=== PATIENT | male | born 1955 | race Caucasian/White ===

== ENCOUNTER 2020-12-11 12:53 | Outpatient (REF) | payer MEDICARE, MEDICAID, SELFPAY ==
--- NOTE | ~2020-12-11 | US_ITS ---
EXAMINATION: US RETROPERITONEAL LIMITED (AORTA) CLINICAL INFORMATION: AAA. COMPARISON: None TECHNIQUE: [place]-scale, color Doppler and spectral Doppler evaluation of the abdominal aorta. FINDINGS: The aorta is normal. The measurements of the aorta in maximum AP and transverse dimensions respectively are as follows: Proximal: 2.8 x 2.9 cm. Mid: 2.2 x 2.0 cm. Distal: 2.0 x 2.3 cm. PSV: 114 cm/s. The visualized common iliac arteries are slightly dilated. The measurements of the common iliac arteries in maximum AP and TRV dimensions are as follows: Right Common Iliac Artery: 1.7 x 1.6 cm. Left Common Iliac Artery: 1.7 x 1.8 cm. US/US aorta IMPRESSION: No aneurysm is seen.
== END 2020-12-11 12:54 | disposition home or self-care (01) ==
LOC: HO.HMGCX 12:53
PROVIDERS: PCP Internal Medicine; Visit Provider Internal Medicine
DX: Z13.6 Encounter for screening for cardiovascular disorders (principal); Z87.891 Personal history of nicotine dependence
CPT/HCPCS: 76775

== ENCOUNTER 2020-12-16 12:08 | Outpatient (REF) | payer MEDICARE, MEDICAID, SELFPAY ==
--- NOTE | ~2020-12-16 | XR_ITS ---
EXAMINATION: RADIOGRAPHS BILATERAL KNEES CLINICAL INFORMATION: Bilateral knee pain COMPARISON: None TECHNIQUE: 4 views of each knee were obtained. FINDINGS: Right knee: No fracture or dislocation. Small suprapatellar joint effusion. Medial and lateral joint spaces are maintained. Tiny tricompartmental marginal osteophyte. Left knee: Patient is status post knee replacement. Components are in expected orientation. No periprosthetic fracture identified. Tiny suprapatellar joint effusion. XR/XR knee RT 2V IMPRESSION: -Mild degenerative changes of the right knee with a small joint effusion. -Unremarkable radiographs of the left knee status post replacement.
--- NOTE | ~2020-12-16 | XR_ITS ---
EXAMINATION: RADIOGRAPHS BILATERAL KNEES CLINICAL INFORMATION: Bilateral knee pain COMPARISON: None TECHNIQUE: 4 views of each knee were obtained. FINDINGS: Right knee: No fracture or dislocation. Small suprapatellar joint effusion. Medial and lateral joint spaces are maintained. Tiny tricompartmental marginal osteophyte. Left knee: Patient is status post knee replacement. Components are in expected orientation. No periprosthetic fracture identified. Tiny suprapatellar joint effusion. XR/XR knee standing BI IMPRESSION: -Mild degenerative changes of the right knee with a small joint effusion. -Unremarkable radiographs of the left knee status post replacement.
--- NOTE | ~2020-12-16 | XR_ITS ---
EXAMINATION: RADIOGRAPHS BILATERAL KNEES CLINICAL INFORMATION: Bilateral knee pain COMPARISON: None TECHNIQUE: 4 views of each knee were obtained. FINDINGS: Right knee: No fracture or dislocation. Small suprapatellar joint effusion. Medial and lateral joint spaces are maintained. Tiny tricompartmental marginal osteophyte. Left knee: Patient is status post knee replacement. Components are in expected orientation. No periprosthetic fracture identified. Tiny suprapatellar joint effusion. XR/XR knee LT 2V IMPRESSION: -Mild degenerative changes of the right knee with a small joint effusion. -Unremarkable radiographs of the left knee status post replacement.
== END 2020-12-16 12:09 | disposition home or self-care (01) ==
LOC: HO.HOSX 12:08
PROVIDERS: Visit Provider Orthopaedic Surgery
DX: M17.11 Unilateral primary osteoarthritis, right knee (principal); Z96.652 Presence of left artificial knee joint
CPT/HCPCS: 20610; 73560; 73565; 99202; J1100

== ENCOUNTER → 2021-03-17 13:14 | Outpatient (BNVA) | payer MEDICARE, MEDICAID, SELFPAY | PROVIDERS: PCP Internal Medicine; Visit Provider Orthopaedic Surgery | DX: M17.11 Unilateral primary osteoarthritis, right knee (principal); Z96.652 Presence of left artificial knee joint | CPT/HCPCS: 99212; J1100 ==

== ENCOUNTER → 2021-06-16 12:15 | Outpatient (BNVA) | payer MEDICARE, MEDICAID, SELFPAY | PROVIDERS: PCP Internal Medicine; Visit Provider Orthopaedic Surgery | DX: M17.11 Unilateral primary osteoarthritis, right knee (principal) | CPT/HCPCS: 99212; J1100 ==

== ENCOUNTER 2023-03-26 14:32 | Outpatient (REF) | payer MEDICARE, MEDICAID, SELFPAY | END 2023-03-26 14:33 | disposition home or self-care (01) | LOC: HO.HHCL 14:32 | PROVIDERS: Visit Provider Nurse Practitioner Family | DX: E78.2 Mixed hyperlipidemia (principal) | CPT/HCPCS: 36415; 82552 ==

== ENCOUNTER 2023-06-04 15:09 | Outpatient (REF) | payer MEDICARE, MEDICAID, SELFPAY ==
[2023-06-10 21:28] LABS: CK-BB None Detected (None Detected); CK-MB 0 % (<5); CK-MM 100 % (95-100); Creatine Kinase,Total,Serum 64 U/L (44-196)
== END 2023-06-04 15:10 | disposition home or self-care (01) ==
LOC: HO.HHCL 15:09
PROVIDERS: Visit Provider Nurse Practitioner Family
DX: I10 Essential (primary) hypertension (principal)
CPT/HCPCS: 36415; 82552

== ENCOUNTER 2024-02-04 14:41 | Outpatient (REF) | payer MEDICARE, MEDICAID, SELFPAY ==
[2024-02-04 17:55] LABS: MANUAL DIFF FLAG NO
[2024-02-04 18:00] LABS: Basophils Percent Auto 0.7 % (0-2); Eosinophils Absolute Auto 0.2 X10*3/uL (0.0-0.4); Eosinophils Percent Auto 3.3 % (0-4); Hematocrit 41.7 % (42.0-52.0); Hemoglobin 14.2 g/dl (14.0-18.0); Imm Gran Abs Auto 0.02 X10*3/uL (0.00-0.03); Imm Gran Pct Auto 0.3 % (0.0-0.4); Lymphocytes Absolute Auto 1.8 X10*3/uL (1.2-4.9); Lymphocytes Percent Auto 29.1 % (20-40); Mean Corpuscular HGB Conc 34.1 g/dl (31.0-36.0); Mean Corpuscular Hemoglobin 31.3 pg (27.0-33.0); Mean Corpuscular Volume 91.9 fL (80.0-98.0); Mean Platelet Volume 9.9 fL (9.4-12.4); Monocytes Absolute Auto 0.9 X10*3/uL (0.1-1.2); Monocytes Percent Auto 14.8 % (2-11); Neutrophils Absolute Auto 3.1 x10*3/uL (2.0-8.3); Neutrophils Percent Auto 51.8 % (45-73); Platelet Count 297 X10*3/uL (160-400); Red Blood Count 4.54 X10*6/uL (4.60-5.80); Red Cell Distribution Width 12.1 % (11.0-16.0)
[2024-02-04 18:35] LABS: Alanine Aminotransferase 30 U/L (0-40); Albumin Level 4.6 g/dL (3.5-5.0); Alkaline Phosphatase 63 U/L (39-117); Anion Gap 16 (12-20); Aspartate Amino Transferase 38 U/L (5-37); Bilirubin Total 0.6 mg/dL (0.0-1.0); Blood Urea Nitrogen 14 mg/dL (9-16); Calcium 9.6 mg/dL (8.4-10.2); Carbon Dioxide 25 mmol/L (22-29); Chloride 102 mmol/L (96-108); Cholesterol 130 mg/dL (<200); Estimated Glomerular Filt Rate > 60; Glucose Random 78 mg/dL (60-115); HDL Cholesterol 47 mg/dL (>40); LDL Cholesterol Calculated 62 mg/dL (<100); Sodium 140 mmol/L (135-145); Total Protein 7.4 g/dL (6.5-8.0); Triglycerides 107 mg/dL (<150)
== END 2024-02-04 14:42 | disposition home or self-care (01) ==
LOC: HO.CHCLDS 14:41
PROVIDERS: Visit Provider Family Medicine
DX: E66.01 Morbid (severe) obesity due to excess calories (principal); G93.32 Myalgic encephalomyelitis/chronic fatigue syndrome; M79.7 Fibromyalgia
CPT/HCPCS: 36415; 80053; 80061; 82306; 84443; 85025

== ENCOUNTER 2024-03-17 14:14 | Outpatient (REF) | payer MEDICARE, MEDICAID, SELFPAY ==
[2024-03-17 17:55] LABS: Anion Gap 13 (12-20); Blood Urea Nitrogen 13 mg/dL (9-16); Calcium 9.7 mg/dL (8.4-10.2); Carbon Dioxide 27 mmol/L (22-29); Chloride 104 mmol/L (96-108); Estimated Glomerular Filt Rate > 60; Glucose Random 95 mg/dL (60-115); Potassium 3.4 mmol/L (3.3-5.1); Sodium 141 mmol/L (135-145)
== END 2024-03-17 14:15 | disposition home or self-care (01) ==
LOC: HO.CHCLDS 14:14
PROVIDERS: Visit Provider Family Medicine
DX: E87.6 Hypokalemia (principal)
CPT/HCPCS: 36415; 80048; 83735

== ENCOUNTER 2024-03-30 14:20 | Outpatient (REF) | payer MEDICARE, MEDICAID, SELFPAY ==
[2024-03-30 21:48] LABS: Anion Gap 12 (12-20); Blood Urea Nitrogen 9 mg/dL (9-16); Calcium 9.4 mg/dL (8.4-10.2); Carbon Dioxide 29 mmol/L (22-29); Chloride 101 mmol/L (96-108); Estimated Glomerular Filt Rate > 60; Glucose Random 133 mg/dL (60-115); Potassium 3.3 mmol/L (3.3-5.1); Sodium 139 mmol/L (135-145)
== END 2024-03-30 14:21 | disposition home or self-care (01) ==
LOC: HO.CHCLDS 14:20
PROVIDERS: Visit Provider Family Medicine
DX: E87.6 Hypokalemia (principal)
CPT/HCPCS: 36415; 80048

== ENCOUNTER 2024-05-03 15:28 | Outpatient (REF) | payer MEDICARE, MEDICAID, SELFPAY ==
--- OUTSIDE RECORDS SUMMARY | 2024-05-03 17:26 | XMS_ITS | Clinical Summary ---
Author Organization [facility] ity Address [address] [place] [address] Care Team Providers Care Hammer Operator Name Role Phone Unavailable Primary Care Provider Unavailabl e Social History Tobacco Use Types Packs/Day Years Used Date Smoking Tobacco: Never Assessed Sex and Gender Information Value Date Recorded Sex Assigned at Not on file Gender Identity Not on file Sexual Orientation Not on file Plan of Treatment Health Maintenance Due Date Last Done Comments DTaP,Tdap,and Td Vaccines (1 - Tdap) 1974 Zoster Vaccines (1 of 2) 2005 Pneumococcal Vaccine: 65+ Ye ars (1 of 1 - PCV) 02/15/2020 Abdominal Aortic Aneurysm (A AA) Screen 03/07/2022 Cholesterol Screening (Lipid Panel) 03/07/2022 Colorectal Cancer Screening: Colonoscopy 03/07/2022 Depression Screening 03/07/2022 Falls Risk Assessment 03/07/2022 Hepatitis C Screening 03/07/2022 Social Influencers of Health Screening 03/07/2022 COVID-19 Vaccine (1 - 2023-2 5 season) 2023 Influenza Vaccine (#1) 2023 RSV Immunization Patients 60 + Years Old (1 - 1-dose 75+ series) 2030 HIB Vaccines Aged Out No longer eligi ble based on patient's age to complete this topic HPV Vaccines Aged Out No longer eligi ble based on patient's age to complete this topic Hepatitis A Vaccines Aged Out No long er eligible based on patient's age to complete this topic Hepatitis B Vaccines Aged Out No long er eligible based on patient's age to complete this topic IPV Vaccines Aged Out No longer eligi ble based on patient's age to complete this topic MMR Vaccines Aged Out No longer eligi ble based on patient's age to complete this topic Meningococcal ACWY Vaccine Aged Out N o longer eligible based on patient's age to complete this topic RSV Immunization Patients Un brianna 20 months Aged Out No longer eligible b ased on patient's age to complete this topic Varicella Vaccines Aged Out No longer eligible based on patient's age to complete this topic
[2024-05-03 18:14] LABS: Anion Gap 12 (12-20); Blood Urea Nitrogen 10 mg/dL (9-16); Calcium 9.4 mg/dL (8.4-10.2); Carbon Dioxide 29 mmol/L (22-29); Chloride 101 mmol/L (96-108); Estimated Glomerular Filt Rate > 60; Glucose Random 101 mg/dL (60-115); Potassium 3.1 mmol/L (3.3-5.1); Sodium 139 mmol/L (135-145)
== END 2024-05-03 15:29 | disposition home or self-care (01) ==
LOC: HO.CHCLDS 15:28
PROVIDERS: Visit Provider Family Medicine
DX: I10 Essential (primary) hypertension (principal)
CPT/HCPCS: 36415; 80048

== ENCOUNTER 2024-09-12 13:08 | Outpatient (REF) | payer MEDICARE, MEDICAID, SELFPAY ==
[2024-09-12 14:23] LABS: MANUAL DIFF FLAG NO
[2024-09-12 14:25] LABS: Basophils Percent Auto 0.4 % (0-2); Eosinophils Absolute Auto 0.2 X10*3/uL (0.0-0.4); Eosinophils Percent Auto 3.9 % (0-4); Hematocrit 39.7 % (42.0-52.0); Hemoglobin 13.7 g/dl (14.0-18.0); Imm Gran Abs Auto 0.02 X10*3/uL (0.00-0.03); Imm Gran Pct Auto 0.4 % (0.0-0.4); Lymphocytes Absolute Auto 1.3 X10*3/uL (1.2-4.9); Lymphocytes Percent Auto 27.4 % (20-40); Mean Corpuscular HGB Conc 34.5 g/dl (31.0-36.0); Mean Corpuscular Hemoglobin 31.4 pg (27.0-33.0); Mean Corpuscular Volume 91.1 fL (80.0-98.0); Mean Platelet Volume 9.9 fL (9.4-12.4); Monocytes Absolute Auto 0.6 X10*3/uL (0.1-1.2); Monocytes Percent Auto 11.8 % (2-11); Neutrophils Absolute Auto 2.6 x10*3/uL (2.0-8.3); Neutrophils Percent Auto 56.1 % (45-73); Platelet Count 250 X10*3/uL (160-400); Red Blood Count 4.36 X10*6/uL (4.60-5.80); Red Cell Distribution Width 12.1 % (11.0-16.0); White Blood Count 4.7 X10*3/uL (4.8-10.8)
[2024-09-12 14:44] LABS: Alanine Aminotransferase 28 U/L (0-40); Albumin Level 4.5 g/dL (3.5-5.0); Alkaline Phosphatase 63 U/L (39-117); Anion Gap 11 (12-20); Aspartate Amino Transferase 27 U/L (5-37); Bilirubin Total 0.6 mg/dL (0.0-1.0); Blood Urea Nitrogen 8 mg/dL (9-16); Calcium 9.6 mg/dL (8.4-10.2); Carbon Dioxide 30 mmol/L (22-29); Chloride 101 mmol/L (96-108); Estimated Glomerular Filt Rate > 60; Glucose Random 124 mg/dL (60-115); Iron 92 mcg/dL (45-160); Percent Iron Saturation 40 % (15-50); Sodium 138 mmol/L (135-145); Total Iron Binding Capacity 229 mcg/dL (228-428); Total Protein 6.5 g/dL (6.5-8.0); Unsaturated Iron Binding 137 ug/dL
[2024-09-12 15:07] LABS: TSH reflex Free T4 1.98 uIU/mL (0.32-4.0); Vitamin D 25-OH Total 47.1 ng/mL (>30)
--- OUTSIDE RECORDS SUMMARY | 2024-09-12 15:29 | XMS_ITS | Encounter Summary ---
Author Organization [employer] Address [address] [place] [address] [address] [place] [address] Care Team Providers Care Card Checker Name Role Phone Liam Aviles MD Unavailable Unavailable Mercedes Jhaveri POULTRY KILLER Unavailable [phone] Ney Jasso Primary Care Provider Adelaide Sr Primary Care Provider [phone] Urszula Mcmahan MD Primary Care Provider [phone] Adelaide Moreno Primary Care Provider [phone] Anahi Mulligan MD Primary Care Provider Urszula Mcmahan MD Primary Care Provider [phone] Reason for Visit * Reason Onset Date Comments Med Refill 04/28/2022 Encounter Details Date Type Department Care Team (Late st Contact Info) Description 04/28/2022 Telephone [facility] [address] [place] [address] [phone] Ney Jasso FNP Med Refill Social History Tobacco Use Types Packs/Day Years Used Date Smoking Tobacco: Never Assessed Sex and Gender Information Value Date Recorded Sex Assigned at Male 02/02/2022 10:38 AM EDT Legal Sex Male 10:38 AM EDT Gender Identity Male 02/02/2022 10:38 AM EDT Sexual Orientation Don't know 02/02/2022 10 :38 AM EDT documented as of this encounter Miscellaneous Notes * Telephone Encounter - POPPY Vasques - 04/28/2022 5:14 PM EST Pt needs TP appt with pcp, gabapentin refilled with 1 refill only. * Telephone Encounter - Machelle Fischer - 04/28/2022 1:28 PM EST Tc from pt requesting med refill on medication gabapentin . documented in this encounter Plan of Treatment Not on file documented as of this encounter Visit Diagnoses Diagnosis Fibromyalgia- Primary Unspecified myalgia and myositis documented in this encounter Care Teams Card Checker Relationship Specialty Start Date End Date Ney Jasso FNP [address] [place] [phone] PCP - General Family Medicine 03/24/22 05/31/22 Adelaide Moreno FNP [address] [place] [address] PCP - General Family Medicine 06/01/22 10/26/23 Urszula Mcmahan MD [address] [place] [address] PCP - General Family Medicine 11/29/23 12/21/23 Adelaide Moreno FNP [address] [place] [address] PCP - General Family Medicine 11/17/23 11/28/23 Anahi Mulligan MD [address] [place] [address] PCP - General Family Medicine 12/22/23 02/03/24 Urszula Mcmahan MD [address] [place] [address] PCP - General Family Medicine 02/04/24 Liam Aviles MD [facility] 01/30/22 12/27/23 Mercedes Jhaveri FNP [address] [place] [phone] [facility] 01/30/22 documented as of this encounter
[2024-09-12 16:00] LABS: Folate 12.9 ng/mL (> or = 4.0); Vitamin B12 281 pg/mL (200-900)
[2024-09-13 08:13] LABS: ~Hepatitis C Antibody Nonreactive (Nonreactive)
== END 2024-09-12 13:09 | disposition home or self-care (01) ==
LOC: HO.CHCLDS 13:08
PROVIDERS: Visit Provider Family Medicine
DX: G93.32 Myalgic encephalomyelitis/chronic fatigue syndrome (principal); M79.7 Fibromyalgia; Z68.35 Body mass index [BMI] 35.0-35.9, adult; R79.9 Abnormal finding of blood chemistry, unspecified; Z13.9 Encounter for screening, unspecified
CPT/HCPCS: 36415; 80053; 82306; 82607; 82746; 83540; 84443; 85025; 86803

== ENCOUNTER 2024-12-13 12:34 | Outpatient (REF) | payer MEDICARE, MEDICAID, SELFPAY ==
--- OUTSIDE RECORDS SUMMARY | 2024-12-13 11:15 | XMS_ITS | Encounter Summary ---
Author Organization [employer] Address [address] [facility] 7[address] [place] [address] Care Team Providers Care Tray Server Name Role Phone JhaveriMercedes roach POPPY Unavailable [phone] Urszula Mcmahan MD Primary Care Provider [phone] Encounter Details Date Type Department Care Team ([facility] st Contact Info) Description 12/13/2024 11:15 AM EDT Office Visit [facility] [address] [place], [place] [phone] Urszula Mcmahan MD [address] [place] [address] Obesity, morbid (CMS/HCC) (Primary Dx); Polyarthralgia; Encounter for screening for other viral diseases Social History Tobacco Use Types Packs/Day Years Used Date Smoking Tobacco: Former Cigarettes Q uit: 06/24/2022 Smokeless Tobacco: Never Comments:Rolls his own cigar ettes which are smaller than normal cigarettes, no chemicals added - on and off for 20 years Alcohol Use Standard Drinks/Week Comments Yes 30 (1 standard drink = 0.6 oz pu re alcohol) Alcohol Answer Date Recorded Frequency of Alcohol Consumption Not on file 02/04/2024 Average Number of Drinks Not on file 024 Frequency of Binge Drinking Not on file 04/2023 Score 0 02/04/2024 Depression Answer Date Recorded Patient Health Questionnaire-9 Score 0 12/13/2024 Patient Health Questionnaire-9 Score 0 12/13/2024 Last PHQ-9: Questionnaire Data Not on file 0 12/13/2024 Housing Stability Answer Date Recorded What is your housing situation today? I have inga enriquez 01/19/[address] you li ve. Do you have problems with any of the following? None of the above 01/19/2023 Food Insecurity Answer Date Recorded Within the past 12 months, y ou worried that your food would run out before you got money to buy more: Never True 01/19/2023 Within the past 12 months,th e food you bought just didn't last and you didn't have enough money to get more: Never True Transportation Answer Date Recorded In the past 12 months, has l ack of transportation kept you from medical appts, meetings, work or from getting things needed for daily living? No 01/19/2023 Utilities Answer Date Recorded In the past 12 months, has t he electric, gas, oil or water company threatened to shut off services in your home? No 01/19/2023 Depression Answer Date Recorded Patient Health Questionnaire-2 Score 0 12/13/2024 Education Answer Date Recorded What is the highest level of school you have completed or the highest degree you have received? High school graduate 06/26/2022 Sex and Gender Information Value Date Recorded Sex Assigned at Male 02/02/2022 10:38 AM EDT Legal Sex Male 10:38 AM EDT Gender Identity Male 02/02/2022 10:38 AM EDT Sexual Orientation Straight 12/13/2024 3: 30 PM EDT documented as of this encounter Last Filed Vital Signs Vital Sign Reading Time Taken Comments Blood Pressure 130/78 12/13/2024 11:21 AM EDT Pulse 78 12/13/2024 11:21 AM EDT Temperature 36.8 C (98.2 F) 12/13/2024 11:21 AM EDT Respiratory Rate 18 12/13/2024 11:21 AM EDT Oxygen Saturation 97% 12/13/2024 11:21 AM EDT Inhaled Oxygen Concentration - - Weight 102 kg (225 lb) 12/13/2024 11:21 AM EDT Height 174 cm (5' 8.5 ) 12/13/2024 11:21 AM EDT Body Mass Index 33.71 12/13/2024 11:21 AM EDT documented in this encounter Functional Status * Over the past 2 weeks, how often have you been bothered by any of the following problems? Question Answer Date of Assessment Author Patient Health Questionnaire -2 Score 0 12/13/2024 11:22 AM EDT Allie Cobos MA * Little interest or pleasure in doing things Answer Date of Assessment Author Not at all 12/13/2024 11:22 AM EDT Allie Cobos MA * Feeling down, depressed, or hopeless Answer Date of Assessment Author Not at all 12/13/2024 11:22 AM EDT Allie Cobos MA * Trouble falling or staying asleep, or sleeping too much Answer Date of Assessment Author Not at all 12/13/2024 11:22 AM EDT Allie Cobos MA * Feeling tired or having little energy Answer Date of Assessment Author Not at all 12/13/2024 11:22 AM EDT Allie Cobos MA * Poor appetite or overeating Answer Date of Assessment Author Not at all 12/13/2024 11:22 AM EDT Allie Cobos MA * Feeling bad about yourself - or that you are a failure or have let yourself or your family down Answer Date of Assessment Author Not at all 12/13/2024 11:22 AM Allie [place] MA * Trouble concentrating on things, such as reading the newspaper or watching television Answer Date of Assessment Author Not at all 12/13/2024 11:22 AM Allie [place] MA * Moving or speaking so slowly that other people could have noticed? Or the opposite - being so fidgety or restless that you have been moving around a lot more than usual. Answer Date of Assessment Author Not at all 12/13/2024 11:22 AM Allie [place] MA * Thoughts that you would be better off or hurting yourself in some way Answer Date of Assessment Author Not at all 12/13/2024 11:22 AM Allie [place] MA * Patient Health Questionnaire-9 Score Answer Date of Assessment Author 0 12/13/2024 11:22 AM Allie [place] MA documented as of this encounter Plan of Treatment Upcoming Encounters Date Type Department Care Team (Late st Contact Info) Description 02/15/2025 11:30 AM EST Office Visit [facility] [address] [place] [address] Urszula Mcmahan MD [address] [place] [address] Scheduled Orders Name Type Priority Associated Diagnoses Orde r Schedule Cyclic Citrullinated Peptide (CCP) Antibody (IgG) Lab Routine Polyarthralgia Expected: 12/13/2024 (Approximate), Expires: 12/13/2025 JAMES Screen,IFA, with Reflex to Titer and Pattern Lab Routine Polyarthralgia Expected: 12/13/2024 (Approximate), Expires: 12/13/2025 Lyme Disease Ab with Reflex to Blot (IgG, IgM) Lab Routine Polyarthralgia Expected: 12/13/2024, Expires: 12/13/2025 Parvovirus B19 Antibodies (IgG,IgM) Lab Routine Polyarthralgia Expected: 12/13/2024 (Approximate), Expires: 12/13/2025 Hepatitis C Antibody with Reflex to HCV, RNA, Quantitative, Real-Time PCR Lab Routine Polyarthralgia Expected: 12/13/2024, Expires: 12/13/2025 Hepatitis B surface antigen, EIA Lab Routine Polyarthralgia Encounter for screening for other viral diseases Expected: 12/13/2024 (Approximate), Expires: 12/13/2025 documented as of this encounter Procedures Procedure Name Priority Date/Time Associated Diagnosis Comments SED RATE BY MODIFIED DAINAREN Routine 12/13/2024 12:36 PM EDT Polyarthralgia RHEUMATOID FACTOR Routine 12/13/2024 12: 36 PM EDT Polyarthralgia C-REACTIVE PROTEIN Routine 12/13/2024 12 :36 PM EDT Polyarthralgia documented in this encounter Results * Rheumatoid Factor (12/13/2024 12:36 PM EDT) Rheumatoid Factor <13.0 <15.0 IU/mL [facility] Blood Venous blood specimen / Unknown 12/13/2024 12:36 PM EDT 12/13/2024 2:17 PM EDT us Urszula Mcmahan MD LAB BLOOD ORDERABLES Final Re sult Performing Organization Address [facility] Co de Phone Number [facility] [address] [place] [phone] * Sed Rate by Modified Westergren (12/13/2024 12:36 PM EDT) Erythrocyte Sedimentation Rate 7 0 - 15 MM/HR [facility] Comment:Patients with polycy themia and many hemoglobin abnormalitiesmay have depressed sed rates whereas patients with anemiamay have elevated sed rates. Blood Venous blood specimen / Unknown 12/13/2024 12:36 PM EDT 12/13/2024 2:23 PM EDT us Urszula Mcmahan MD LAB BLOOD ORDERABLES Final Re sult Performing Organization Address [facility] Co de Phone Number [facility] [address] [place] [phone] * C-reactive Protein (12/13/2024 12:36 PM EDT) C Reactive Protein 0.44 < or = 0.50 mg/dL [facility] Blood Venous blood specimen / Unknown 12/13/2024 12:36 PM EDT 12/13/2024 2:18 PM EDT us Urszula Mcmahan MD LAB BLOOD ORDERABLES Final Re sult Performing Organization Address [facility] Co de Phone Number [facility] [address] [place] [phone] documented in this encounter Visit Diagnoses Diagnosis Obesity, morbid (CMS/HCC)- Primary Morbid obesity Polyarthralgia Pain in joint, multiple sites Encounter for screening for other viral diseases documented in this encounter Additional Health Concerns Assessment Noted Time PHQ-9 Depression Total Score: 0 12/14/19 25 11:22 AM EDT documented as of this encounter Care Teams Tray Server Relationship Specialty Start Date End Date Urszula Mcmahan MD [address] [place] [address] PCP - General Family Medicine 02/04/24 Mercedes Jhaveri FNP [address] [place] [phone] Family Medicine 01/30/22 documented as of this encounter
[2024-12-13 15:09] LABS: Erythrocyte Sedimentation Rate 7 MM/HR (0-15)
--- OUTSIDE RECORDS SUMMARY | 2024-12-13 15:30 | XMS_ITS | Encounter Summary ---
Author Organization [facility] Address [address] [facility] [address] [place] [address] Phone Care Team Providers Care Power Wheelchair Mechanic Name Role Phone Tao Choudhury MD Unavailable [phone] Rachael Norton NP Primary Care Provider + July Norton MD Primary Care Provider [phone] Dustin Garber DO Primary Care Provider Reason for Referral * Consultation (Within 1 month) - Closed Specialty Diagnoses / Procedures Referred By Allie estrada Referred To Contact Rheumatology System, Provider Not In, PhD [phone] [place] [phone] Phone: tel: Referral ID Status Reason Start Date Expiration Date Visits Re quested Visits Authorized [id number] Closed 09/21/2017 09/21/2018 1 1 Encounter Details Date Type Department Care Team (Late st Contact Info) Description 09/21/2017 Transcribe Orders [facility] Rheumatology [address], [address] [place] [address] July Norton MD [address] [place] [phone] [email or web address] Social History Tobacco Use Types Packs/Day Years Used Date Smoking Tobacco: Never Assessed Sex and Gender Information Value Date Recorded Sex Assigned at Not on file Legal Sex Male 9:55 PM EDT Gender Identity Not on file Sexual Orientation Not on file documented as of this encounter Plan of Treatment Scheduled Referrals Name Type Priority Associated Diagnoses Order Schedule Ambulatory referral to [facility] Rheumatology Outpatient Referral Routine Ordered: 09/21/2017 documented as of this encounter Visit Diagnoses Not on filedocumented in this encounter Care Teams Power Wheelchair Mechanic Relationship Specialty Start Date End Date Rachael Norton NP [address] [place] [address] PCP - General Unknown Provider Specialty 03/31/17 09/22/17 July Norton MD [address] [place] [address] [email or web address] PCP - General Family Medicine 09/23/17 04/21/18 Dustin Garber, [address] [address] [email or web address] PCP - General Family Medicine 04/22/18 Tao Choudhury MD [address] [place] [phone] [email or web address] LMR Provider 01/21/17 04/12/21 documented as of this encounter Additional Source Comments The information contained in this document represents components of the legal health record. It is not the complete legal health record.[facility]
--- OUTSIDE RECORDS SUMMARY | 2024-12-13 15:30 | XMS_ITS | Encounter Summary ---
Author Organization [employer] Address [address] [facility] 7t [place] [address] Care Team Providers Care Tannery Gummer Name Role Phone JhaveriMercedes roach AUTO EMISSIONS TECHNICIAN Unavailable Urszula Mcmahan MD Primary Care Provider [phone] Reason for Visit * Reason Onset Date Comments Med Refill 07/21/2024 Encounter Details Date Type Department Care Team ([facility] st Contact Info) Description 07/21/2024 Refill [facility] [address] [place] [address] Glenda Patrick MD [address] [place] [address] Chronic fatigue syndrome with fibromyalgia Social History Tobacco Use Types Packs/Day Years [...] Answer Date Recorded Patient Health Questionnaire-9 Score 1 06/04/2023 Patient Health Questionnaire-9 Score 1 06/04/2023 Last PHQ-9: Questionnaire Data Not on file 0 06/04/2023 Housing Stability Answer Date Recorded What is [...] Date Recorded Patient Health Questionnaire-2 Score 0 06/04/2023 Education Answer Date Recorded What is the [...] AM EDT documented as of this encounter Plan of Treatment Upcoming Encounters Date Type Department Care Team (Late st Contact Info) Description 02/15/2025 11:30 AM EST Office Visit [facility] [address] [place] [address] Urszula Mcmahan MD [address] [place] [address] documented as of this encounter Visit Diagnoses Diagnosis Chronic fatigue syndrome with fibromyalgia documented in this encounter Additional Health Concerns Assessment Noted Time PHQ-9 Depression Total Score: 1 06/04/19 24 1:59 PM EST documented as of this encounter Care Teams Tannery Gummer Relationship Specialty Start Date End Date Urszula Mcmahan MD [address] [place] [phone] PCP - General Family Medicine 02/04/24 Mercedes Jhaveri FNP [address] [place] [phone] Family Medicine 01/30/22 documented as of this encounter
--- OUTSIDE RECORDS SUMMARY | 2024-12-13 15:30 | XMS_ITS | Encounter Summary ---
Author Organization [employer] Address [address] [facility] [address] [place] [address] Care Team Providers Care Party Plan Sales Unit Sales Leader Name Role Phone JhaveriMercedes roach POPPY Unavailable [phone] Urszula Mcmahan MD Primary Care Provider [phone] Encounter Details Date Type Department Care Team (Latest Contact Info) Description 12/13/2024 Travel Social History Tobacco Use Types Packs/Day Years [...] PM EDT documented as of this encounter Functional Status * Over the [...] AM EDT Allie Cobos MA * Trouble concentrating on things, such as reading the newspaper or watching television Answer Date of Assessment Author Not at all 12/13/2024 11:22 AM EDT Allie Cobos MA * Moving or speaking so slowly that other people could have noticed? Or the opposite - being so fidgety or restless that you have been moving around a lot more than usual. Answer Date of Assessment Author Not at all 12/13/2024 11:22 AM EDT Allie Cobos MA * Thoughts that you would be better off or hurting yourself in some way Answer Date of Assessment Author Not at all 12/13/2024 11:22 AM EDAllie Erickson MA * Patient Health Questionnaire-9 Score Answer Date of Assessment Author 0 12/13/2024 11:22 AM EDT Allie Cobos MA documented as of this encounter Plan of Treatment Upcoming Encounters Date Type Department Care Team (Late st Contact Info) Description 02/15/2025 11:30 AM EST Office Visit [facility] [address] [place] [address] Urszula Mcmahan MD [address] [place] [address] documented as of this encounter Visit Diagnoses Not on filedocumented in this encounter Additional Health Concerns Assessment Noted Time PHQ-9 Depression Total Score: 0 12/14/19 25 11:22 AM EDT documented as of this encounter Care Teams Party Plan Sales Unit Sales Leader Relationship Specialty Start Date End Date Urszula Mcmahan MD [address] [place] [address] PCP - General Family Medicine 02/04/24 Mercedes Jhaveri FNP [address] [place] [address] Family Medicine 01/30/22 documented as of this encounter
--- OUTSIDE RECORDS SUMMARY | 2024-12-13 15:30 | XMS_ITS | Clinical Summary ---
Author Organization [facility] Address [address] [place], [place] [id number] Phone Care Team Providers Care Glass Decorator Name Role Phone Dustin Seymour DO Primary Care Provider [phone] Allergies Active Allergy Reactions Criticality Noted Date Comments Cyclobenzaprine Hcl 10/14/2016 Other reaction(s): No effect Gabapentin 10/14/2016 Other reaction(s): pruritus and tremors Naltrexone 10/14/2016 Other reaction(s): severe itching, insomnia Sulfa (Sulfonamide Antibiotics) Hives High 12/26/2014 Medications diphenhydrAMINE (BENADRYL) 50 MG capsule Take 1 capsule by mouth nightly. Active omeprazole (PRILOSEC) 20 MG capsule Take 1 capsule by mouth 2 (two) times a day. Active cetirizine (ZYRTEC) 10 MG tablet Take 1 tablet by mouth daily. 06/24/2016 Active losartan (COZAAR) 50 MG tablet Take 100 mg by mouth daily. Active hydroCHLOROthia zide (HYDRODIURIL) 25 MG tablet Take 25 mg by mouth daily. Active meloxicam (MOBIC) 15 MG tablet Take 15 mg by mouth daily. Active traZODone (DESYREL) 50 MG tabletIndicatio ns:2 tabs Take 50 mg by mouth nightly at bedtime. Indications: 2 tabs Active triamcinolone (NASACORT AQ) 55 mcg/actuation nasal inhaler SPRAY 2 SPRAYS INTO EACH NOSTRIL EVERY DAY 5 08/16/2018 Active ALAWAY 0.025 % (0.035 %) ophthalmic solution INSTILL 1 DROP INTO BOTH EYES TWICE A DAY 2 08/10/2018 Active fluticasone propionate (FLONASE) 50 mcg/actuation nasal spray SPRAY 1 SPRAY INTO EACH NOSTRIL TWICE A DAY FOR 2 WEEKS THEN ONCE A DAY 7 08/16/2018 Active EPINEPHrine 0.3 mg/0.3 mL auto-injector INJECT NEEDED FOR ALLERGIC REACTION 2 07/29/2018 Active buPROPion (WELLBUTRIN SR) 150 MG SR 12 hr tablet TAKE 1 (ONE) TABLET A DAY FOR ONE WEEK AND THEN INCREASE TO 1 TAB TWICE DAILY 1 06/09/2018 Active gabapentin (NEURONTIN) 300 MG capsule TAKE 1 CAPSULE BY MOUTH FOUR TIMES DAILY 1 08/15/2018 Active losartan (COZAAR) 100 MG tablet Take 100 mg by mouth daily. 7 08/10/2018 Active omeprazole (PRILOSEC) 20 MG capsule 12/19/2014 Active alpha lipoic acid (LIPOIC ACID) 100 mg Cap Take 600 mg by mouth daily. 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 Primary osteoarthritis of both knees 03/24/2017 Seasonal and perennial allergic rhinitis 017 Sleep disturbance 03/24/2017 Status post radiation therapy 03/24/2017 Family History Medical History Relation Comments CV disease Father 2 Cancer Father 2 Diabetes mellitus Father 2 CV disease Mother 2 Cancer Mother 2 Relation Status Comments Father 1 Father 2 Mother 1 Mother 2 Social History Tobacco Use Types Packs/Day Years Used Date Smoking Tobacco: Former Cigarettes Q uit: 08/25/2012 Smokeless Tobacco: Never Alcohol Use Standard Drinks/Week Comments Yes 3 (1 standard drink = 0.6 oz pur e alcohol) a week Education Answer Date Recorded Are you interested in more education? Not on sudhir e 07/31/2022 Are you concerned about learning? Not on file 07/31/2022 No 07/31/2022 No 07/31/2022 Digital Access Answer Date Recorded No 08/29/2022 No 08/29/2022 Reliable internet access at home? Not on file 08/29/2022 Device with a working camera? Not on file Sex and Gender Information Value Date Recorded Sex Assigned at Not on file Legal Sex Male 9:55 PM EDT Gender Identity Not on file Sexual Orientation Not on file Last Filed Vital Signs Vital Sign Reading Time Taken Comments Blood Pressure 160/92 08/25/2018 9:27 AM EDT Pulse 74 08/25/2018 9:27 AM EDT Temperature 36.9 C (98.4 F) 04/29/2018 11:19 AM EST Respiratory Rate - - Oxygen Saturation 96% 04/29/2018 11:19 AM EST Inhaled Oxygen Concentration - - Weight 95.7 kg (211 lb) 08/25/2018 9:27 AM EDT Height 175.5 cm (5' 9.09 ) 08/25/2018 9:27 AM ED T Body Mass Index 31.07 08/25/2018 9:27 AM EDT Plan of Treatment Health Maintenance Due Date Last Done Comments Adult Td,Tdap Booster 1955 DEPRESSION SCREENING 1967 SMOKING Hx and SMOKELESS TOBACCO SCREENING 02/15/1968 HEPATITIS C SCREENING 1973 COLOGUARD 02/15/2000 COLONOSCOPY 02/15/2000 COLORECTAL CANCER SCREENING 02/15/2000 FIT TEST 02/15/2000 FOBT 02/15/2000 SIGMOIDOSCOPY 02/15/2000 VIRTUAL COLONOSCOPY 02/15/2000 PNEUMOCOCCAL VACCINES (50+ years) (1 of 1 - PCV) 2005 ZOSTER VACCINES (3 of 3) 01/03/2019 11/08/2018, 02/04 CREATININE LEVEL 09/09/2019 09/08/2018, 04/29/2018 POTASSIUM LEVEL 09/09/2019 09/08/2018, 04/29/2018 ABDOMINAL AORTIC ANEURYSM (AAA) SCREENING 02/15/2020 INFLUENZA VACCINE (#1) 2024 , 12/01/2018, 12/15/2017, Additional history exists COVID-19 VACCINE (2 - 2024- season) 2024 05/27/2020 LIPID PANEL 06/27/2027 06/26/2022 RSV VACCINE (1 - 1-dose 75+ series) 2030 HEPATITIS A VACCINES Aged Out No long er eligible based on patient's age to complete this topic HIB VACCINES Aged Out No longer eligi ble based on patient's age to complete this topic MENINGOCOCCAL VACCINES (ACWY) Aged Out No longer eligible based on patient's age to complete this topic MENINGOCOCCAL VACCINES (B) Aged Out N o longer eligible based on patient's age to complete this topic Medical Devices Not on file Procedures Procedure Name Priority Date/Time Associated Diagnosis Comments BASIC METABOLIC PANEL Routine 09/08/2018 3:01 PM EDT Bilateral knee pain from Last 3 Months or Most Recently Relevant to Health Maintenance Results * Basic metabolic panel (09/08/2018 3:01 PM EDT) SODIUM 142 133 - 146 mmol/L [facility] CHLORIDE 102 96 - 108 mmol/L [facility] POTASSIUM 4.3 3.3 - 5.1 mmol/L [facility] CO2 27 21 - 35 mmol/L [facility] BUN 12 6 - 19 mg/dL [facility] CREATININE 1.00 0.5 - 1.5 mg/dL [facility] GLUCOSE 95 70 - 99 mg/dL [facility] CALCIUM 9.7 8.4 - 10.3 mg/dL [facility] EGFR 80 >59 mL/min/1.7 3m2 [facility] Comment:If patient is black, multiply result by 1.159. Estimated glomerular filtration rate calculated using the CKD-EPI equation. ANION GAP 17 10 - 20 mmol/L [facility] Blood 09/08/2018 3:01 PM EDT 09/08/2018 3:06 PM EDT us Wily Ardon MD LAB BLOOD ORDERABLES Final R esult [address] [address] from Last 3 Months or Most Recently Relevant to Health Maintenance Insurance C3 ACO C3 ACO C3 ACO C3 ACO C3 ACO C3 ACO C3 ACO C3 ACO C3 ACO Care Teams Glass Decorator Relationship Specialty Start Date End Date Dustin Garber DO [address] [address] [email or web address] PCP - General Family Medicine 04/22/18 Additional Source Comments The information contained in this document represents components of the legal health record. It is not the complete legal health record.[facility]
--- OUTSIDE RECORDS SUMMARY | 2024-12-13 15:30 | XMS_ITS | Encounter Summary ---
Author Organization [facility] Address [address] [place] [address] Phone Care Team Providers Care Sr. Pricing Analyst Name Role Phone Tao Choudhury MD Unavailable [phone] Dustin Garber DO Primary Care Provider [phone] Encounter Details Date Type Department Care Team (Late st Contact Info) Description 01/09/2019 Procedure Pass OR Admitting Dept - Virtual Department [address] [place] [address] Social History Tobacco Use Types Packs/Day Years Used Date Smoking Tobacco: Former Cigarettes Q uit: 08/25/2012 Smokeless Tobacco: Never Alcohol Use Standard Drinks/Week Comments Yes 3 (1 standard drink = 0.6 oz pur e alcohol) a week Sex and Gender Information Value Date Recorded Sex Assigned at Not on file Legal Sex Male 9:55 PM EDT Gender Identity Not on file Sexual Orientation Not on file documented as of this encounter Plan of Treatment Not on file documented as of this encounter Visit Diagnoses Not on filedocumented in this encounter Care Teams Sr. Pricing Analyst Relationship Specialty Start Date End Date Dustin Garber DO [address] [address] [email or web address] PCP - General Family Medicine 04/22/18 Tao Choudhury MD [address] [place] [address] [email or web address] LMR Provider 01/21/17 04/12/21 documented as of this encounter Additional Source Comments The information contained in this document represents components of the legal health record. It is not the complete legal health record.[facility]
--- OUTSIDE RECORDS SUMMARY | 2024-12-13 15:30 | XMS_ITS | Encounter Summary ---
Author Organization [employer] Address [address] [facility] 7t [place] [address] Care Team Providers Care Awning Spreader Name Role Phone Liam Aviles MD Unavailable Unavailable Mercedes Jhaveri TOOL CRIB ATTENDANT Unavailable [phone] Adelaide Moreno Primary Care Provider [phone] Urszula Mcmahan MD Primary Care Provider Adelaide Moreno Primary Care Provider [phone] Anahi Mulligan MD Primary Care Provider Urszula Mcmahan MD Primary Care Provider Encounter Details Date Type Department Care Team (Late st Contact Info) Description 06/07/2023 Orders Only [facility] MED & PEDS [address] [place] [address] Adelaide Moreno FNP [address] [place], [place] [phone] Social History Tobacco Use Types Packs/Day Years Used Date Smoking Tobacco: Former Cigarettes Q uit: 06/24/2022 Smokeless Tobacco: Never Comments:Rolls his own cigar ettes which are smaller than normal cigarettes, no chemicals added - on and off for 20 years Alcohol Use Standard Drinks/Week Comments Yes 30 (1 standard drink = 0.6 oz pu re alcohol) Alcohol Answer Date Recorded Q1: How often do you have a drink containing alc ohol? 5 06/26/2022 Q2: How many drinks containi ng alcohol do you have on a typical day when you are drinking? 3 06/26/2022 Q3: How often do you have six or more drinks on one occasion? 5 06/26/2022 Depression Answer Date Recorded Patient Health Questionnaire-9 [...] PM EDT documented as of this encounter Plan of Treatment Upcoming Encounters Date Type Department Care Team (Late st Contact Info) Description 02/15/2025 11:30 AM EST Office Visit [facility] MED & PEDS [address] [place] [address] Urszula Mcmahan MD 505 [place] [address] documented as of this encounter Visit Diagnoses Not on filedocumented in this encounter Additional Health Concerns Assessment Noted Time PHQ-9 Depression Total Score: 1 06/04/19 24 1:59 PM EST documented as of this encounter Care Teams Awning Spreader Relationship Specialty Start Date End Date Adelaide Moreno FNP [address] [place] [address] PCP - General Family Medicine 06/01/22 10/26/23 Urszula Mcmahan MD [address] [place] [address] PCP - General Family Medicine 11/29/23 12/21/23 Adelaide Moreno FNP [address] [place] [address] PCP - General Family Medicine 11/17/23 11/28/23 Anahi Mulligan MD [address] [place] [address] PCP - General Family Medicine 12/22/23 02/03/24 Urszula Mcmahan MD [address] [place] [address] PCP - General Family Medicine 02/04/24 Liam Aviles MD Family Medicine 01/30/22 12/27/23 Mercedes Jhaveri FNP [address] [place] [address] Family Medicine 01/30/22 documented as of this encounter
--- OUTSIDE RECORDS SUMMARY | 2024-12-13 15:30 | XMS_ITS | Encounter Summary ---
Author Organization [employer] Address [address] [place] [address] 7 [place] [address] Care Team Providers Care Clay Thrower Name Role Phone Liam Aviles MD Unavailable Unavailable Mercedes Jhaveri SENIOR TELECOMMUNICATIONS CONSULTANT Unavailable [phone] Adelaide Moreno Primary Care Provider [phone] Urszula Mcmahan MD Primary Care Provider [phone] Adelaide Moreno Primary Care Provider [phone] Anahi Mulligan MD Primary Care Provider [phone] Urszula Mcmahan MD Primary Care Provider Reason for Visit * Reason Comments Med Change Request Encounter Details Date Type Department Care Team ([facility] st Contact Info) Description 05/25/2023 Refill [facility] MEDICINE [address] [place], [place] [phone] Adelaide Moreno FNP [address] [place], [place] [phone] Social History Tobacco Use Types Packs/Day Years [...] Date Recorded Patient Health Questionnaire-9 Score 1 06/26/2022 Housing Stability Answer Date Recorded What is [...] Date Recorded Patient Health Questionnaire-2 Score 0 06/26/2022 Education Answer Date Recorded What is the [...] Description 02/15/2025 11:30 AM EST Office Visit [facility] MED & PEDS [address] [place] [address] Urszula Mcmahan MD 505 [place] [address] documented as of this encounter Visit Diagnoses Not on filedocumented in this encounter Additional Health Concerns Assessment Noted Time PHQ-9 Depression Total Score: 1 06/27/19 23 10:51 AM EDT documented as of this encounter Care Teams Clay Thrower Relationship Specialty Start Date End Date Adelaide Moreno FNP [address] [place] [address] PCP - General Family Medicine 06/01/22 10/26/23 Urszula Mcmahan MD [address] [place] [address] PCP - General Family Medicine 11/29/23 12/21/23 Adelaide Moreno FNP [address] [place] [address] PCP - General Family Medicine 11/17/23 11/28/23 Anahi Mulligan MD [address] [place] [address] PCP - General Family Medicine 12/22/23 02/03/24 Urszula Mcmahan MD [address] [place] [address] PCP - General Family Medicine 02/04/24 Liam Aviles MD Family Medicine 01/30/22 12/27/23 Mercedes Jhaveri FNP [address] [place] [address] Family Medicine 01/30/22 documented as of this encounter
--- OUTSIDE RECORDS SUMMARY | 2024-12-13 15:30 | XMS_ITS | Encounter Summary ---
Author Organization [employer] Address [address] [facility] 7t [place] [address] Care Team Providers Care Business Risk Analyst Name Role Phone Liam Aviles MD Unavailable Unavailable Mercedes Jhaveri TRANSPORTATION CLERK Unavailable [phone] Adelaide Moreno Primary Care Provider [phone] Urszula Mcmahan MD Primary Care Provider Adelaide Moreno Primary Care Provider [phone] Anahi Mulligan MD Primary Care Provider Urszula Mcmahan MD Primary Care Provider Encounter Details Date Type Department Care Team (Late st Contact Info) Description 09/01/2022 Orders Only [facility] MEDICINE 230 [place], [place] [phone] Adelaide Moreno TRANSPORTATION CLERK [address] [place], [place] [phone] Social History Tobacco Use Types Packs/Day Years Used Date Smoking Tobacco: Every Day Cigarettes Last attempted to quit: 06/24/2022 Smokeless Tobacco: Never Comments:Rolls his own cigar ettes which are smaller than normal cigarettes, no chemicals added Alcohol Use Standard Drinks/Week Comments Yes 30 [...] Recorded Patient Health Questionnaire-9 Score 1 06/26/2022 Depression Answer Date Recorded Patient Health Questionnaire-2 [...] Description 02/15/2025 11:30 AM EST Office Visit [facility] MED & PEDS [address] [place] [address] Urszula Mcmahan MD 505 [place] [address] documented as of this encounter Visit Diagnoses Not on filedocumented in this encounter Additional Health Concerns Assessment Noted Time PHQ-9 Depression Total Score: 1 06/27/19 23 10:51 AM EDT documented as of this encounter Care Teams Business Risk Analyst Relationship Specialty Start Date End Date Adelaide Moreno FNP [address] [place] [address] PCP - General Family Medicine 06/01/22 10/26/23 Urszula Mcmahan MD [address] [place] [address] PCP - General Family Medicine 11/29/23 12/21/23 Adelaide Moreno FNP [address] [place] [address] PCP - General Family Medicine 11/17/23 11/28/23 Anahi Mulligan MD [address] [place] [address] PCP - General Family Medicine 12/22/23 02/03/24 Urszula Mcmahan MD 230 [place] [address] PCP - General Family Medicine 02/04/24 Liam Aviles MD Family Medicine 01/30/22 12/27/23 Mercedes Jhaveri FNP [address] [place] [address] Family Medicine 01/30/22 documented as of this encounter
--- OUTSIDE RECORDS SUMMARY | 2024-12-13 15:30 | XMS_ITS | Encounter Summary ---
Author Organization [employer] Address [address] [facility] 7t [place] [address] Care Team Providers Care Video Tape Transferrer Name Role Phone JhaveriMercedes roach GREEN MARKETING ANALYST Unavailable [phone] Urszula Mcmahan MD Primary Care Provider [phone] Encounter Details Date Type Department Care Team (Late st Contact Info) Description 06/08/2024 Orders Only [facility] MEDICINE 230 [place] [address] Ra Grajeda MD 505 [place] [address] Obesity, morbid (CMS/HCC) (Primary Dx) Social History Tobacco Use Types Packs/Day Years [...] Description 02/15/2025 11:30 AM EST Office Visit [facility] MED & PEDS 505 [place] [address] Urszula Mcmahan MD [address] [place] [address] documented as of this encounter Visit Diagnoses Diagnosis Obesity, morbid (CMS/HCC)- Primary Morbid obesity documented in this encounter Additional Health Concerns Assessment Noted Time PHQ-9 Depression Total Score: 1 06/04/19 24 1:59 PM EST documented as of this encounter Care Teams Video Tape Transferrer Relationship Specialty Start Date End Date Urszula Mcmahan MD [address] [place] [address] PCP - General Family Medicine 11/1/24 Mercedes Jhaveri FNP [address] [place] [address] Family Medicine 01/30/22 documented as of this encounter
--- OUTSIDE RECORDS SUMMARY | 2024-12-13 15:30 | XMS_ITS | Encounter Summary ---
Author Organization [email or web address] Address [address] [facility] 7t [place] [address] Care Team Providers Care Mouthpiece Maker Name Role Phone JhaveriMercedes roach CORPORATE SECURITY OFFICER Unavailable [phone] Anahi Mulligan MD Primary Care Provider [phone] Urszula Mcmahan MD Primary Care Provider [phone] Reason for Visit * Reason Onset Date Comments Med Refill 01/21/2024 Encounter Details Date Type Department Care Team (Late st Contact Info) Description 01/21/2024 Refill [facility] MEDICINE [address] [place], [place] [phone] Adelaide Moreno FNP [address] [place] [address] Persistent insomnia; Allergy to [place] house dust mite Social History Tobacco Use Types Packs/Day Years [...] Description 02/15/2025 11:30 AM EST Office Visit [facility] MED & PEDS 505 [place] [address] Urszula Mcmahan MD 505 [place] [address] documented as of this encounter Visit Diagnoses Diagnosis Persistent insomnia Allergy to [place] house dust mite documented in this encounter Additional Health Concerns Assessment Noted Time PHQ-9 Depression Total Score: 1 06/04/19 24 1:59 PM EST documented as of this encounter Care Teams Mouthpiece Maker Relationship Specialty Start Date End Date Anahi Mulligan MD [address] [place] [address] PCP - General Family Medicine 12/22/23 02/03/24 Urszula Mcmahan MD [address] [place] [address] PCP - General Family Medicine 02/04/24 Mercedes Jhaveri FNP [address] [place] [address] Family Medicine 01/30/22 documented as of this encounter
--- OUTSIDE RECORDS SUMMARY | 2024-12-13 15:30 | XMS_ITS | Encounter Summary ---
Author Organization [employer] Address [address] [facility] [address] 7t [place] [address] Care Team Providers Care Straightening Machine Operator Name Role Phone JhaveriMercedes roach POPPY Unavailable [phone] Urszula Mcmahan MD Primary Care Provider [phone] Encounter Details Date Type Department Care Team (Latest Contact Info) Description 12/08/2024 Travel Social History Tobacco Use Types Packs/Day [...] 11:30 AM EST Office Visit [facility] MED & PEDS [address] [place] [address] Urszula Mcmahan MD [address] [place] [address] documented as of this encounter Visit Diagnoses Not on filedocumented in this encounter Additional Health Concerns Assessment Noted Time PHQ-9 Depression Total Score: 1 06/04/19 24 1:59 PM EST documented as of this encounter Care Teams Straightening Machine Operator Relationship Specialty Start Date End Date Urszula Mcmahan MD [address] [place] [address] PCP - General Family Medicine 02/04/24 Mercedes Jhaveri FNP [address] [place] [address] Family Medicine 01/30/22 documented as of this encounter
--- OUTSIDE RECORDS SUMMARY | 2024-12-13 15:30 | XMS_ITS | Encounter Summary ---
Author Organization [employer] Address [address] [facility] 7 [place] [address] Care Team Providers Care Machine Spreader Name Role Phone Liam Aviles MD Unavailable Unavailable Mercedes Jhaveri SIZING SPONGER Unavailable [phone] Urszula Mcmahan MD Primary Care Provider Adelaide MorenoP Primary Care Provider [phone] Anahi Mulligan MD Primary Care Provider [phone] Urszula Mcmahan MD Primary Care Provider [phone] Reason for Visit * Reason Onset Date Comments Med Refill 11/17/2023 Encounter Details Date Type Department Care Team (Late st Contact Info) Description 11/17/2023 Refill [facility] MEDICINE [address] [place], [place] [phone] Adelaide Moreno FNP [address] [place], [place] [phone] Fibromyalgia Social History Tobacco Use Types Packs/Day Years [...] Description 02/15/2025 11:30 AM EST Office Visit [facility] CH[facility] MED & PEDS 505 [place] [address] Urszula Mcmahan MD 505 [place] [address] documented as of this encounter Visit Diagnoses Diagnosis Fibromyalgia Unspecified myalgia and myositis documented in this encounter Additional Health Concerns Assessment Noted Time PHQ-9 Depression Total Score: 1 06/04/19 24 1:59 PM EST documented as of this encounter Care Teams Machine Spreader Relationship Specialty Start Date End Date Urszula Mcmahan MD [address] [place] [address] PCP - General Family Medicine 11/29/23 12/21/23 Adelaide Moreno FNP 230 [place] [address] PCP - General Family Medicine 11/17/23 11/28/23 Anahi Mulligan MD [address] [place] [address] PCP - General Family Medicine 12/22/23 02/03/24 Urszula Mcmahan MD [address] [place] [address] PCP - General Family Medicine 02/04/24 Liam Aviles MD Family Medicine 01/30/22 12/27/23 Mercedes Jhaveri FNP [address] [place] [address] Family Medicine 01/30/22 documented as of this encounter
--- OUTSIDE RECORDS SUMMARY | 2024-12-13 15:30 | XMS_ITS | Encounter Summary ---
Author Organization [employer] Address [address] [facility] 7t [place] [address] Care Team Providers Care Drag Seiner Name Role Phone Mercedes Jhaveri STRIPPER LATEX Unavailable Urszula Mcmahan MD Primary Care Provider [phone] Reason for Visit * Reason Onset Date Comments Chart Prep 12/12/2024 Encounter Details Date Type Department Care Team ([facility] Contact Info) Description 12/12/2024 Telephone [facility] CHC MED & PEDS [address] [place] [address] Urszula Mcmahan MD 505 [place] [address] Chart Prep Social History Tobacco Use Types Packs/Day Years [...] PM EDT documented as of this encounter Miscellaneous Notes * Telephone Encounter - Roseline Machado [place] - 12/12/2024 2:03 PM EDT Chart Prep Labs: done Images: not applicable Referrals: not applicable Vaccines due: no updates Screenings: skin check Overdue care gaps: SDOH, PHQ-9, and Tobacco documented in this encounter Plan of Treatment Upcoming Encounters Date Type Department Care Team (Late st Contact Info) Description 02/15/2025 11:30 AM EST Office Visit [facility] MED & PEDS [address] [place] [address] Urszula Mcmahan MD 505 [place] [address] documented as of this encounter Visit Diagnoses Not on filedocumented in this encounter Additional Health Concerns Assessment Noted Time PHQ-9 Depression Total Score: 1 06/04/19 24 1:59 PM EST documented as of this encounter Care Teams Drag Seiner Relationship Specialty Start Date End Date Urszula Mcmahan MD [address] [place] [address] PCP - General Family Medicine 02/04/24 Mercedes Jhaveri FNP [address] [place] [address] Family Medicine 01/30/22 documented as of this encounter
--- OUTSIDE RECORDS SUMMARY | 2024-12-13 15:30 | XMS_ITS | Encounter Summary ---
Author Organization [employer] Address [address] [facility] 7t [place] [address] Care Team Providers Care Debrander Name Role Phone Liam Aviles MD Unavailable Unavailable Mercedes Jhaveri RING MAKER Unavailable [phone] Adelaide Moreno Primary Care Provider [phone] Urszula Mcmahan MD Primary Care Provider Adelaide Moreno Primary Care Provider [phone] Anahi Mulligan MD Primary Care Provider [phone] Urszula Mcmahan MD Primary Care Provider Encounter Details Date Type Department Care Team (Late st Contact Info) Description 09/28/2023 Orders Only [facility] CHC MED & PEDS [address] [place] [address] Adelaide Moreno FNP [address] [place], [place] [phone] Social History Tobacco Use Types Packs/Day Years [...] 11:30 AM EST Office Visit [facility] CHC MED & PEDS 505 [place] [address] Urszula Mcmahan MD 505 [place] [address] documented as of this encounter Visit Diagnoses Not on filedocumented in this encounter Additional Health Concerns Assessment Noted Time PHQ-9 Depression Total Score: 1 06/04/19 24 1:59 PM EST documented as of this encounter Care Teams Debrander Relationship Specialty Start Date End Date Adelaide Moreno FNP [address] [place] [address] PCP - General Family Medicine 06/01/22 10/26/23 Urszula Mcmahan MD [address] [place] [address] PCP - General Family Medicine 11/29/23 12/21/23 Adelaide Moreno FNP [address] [place] [address] PCP - General Family Medicine 11/17/23 11/28/23 Anahi Mulligan MD [address] [place] [address] PCP - General Family Medicine 12/22/23 02/03/24 Urszula Mcmahan MD [address] [place] [address] PCP - General Family Medicine 02/04/24 Liam Aviles MD Family Medicine 01/30/22 12/27/23 Mercedes Jhaveri FNP [address] [place] [address] Family Medicine 01/30/22 documented as of this encounter
--- OUTSIDE RECORDS SUMMARY | 2024-12-13 15:30 | XMS_ITS | Encounter Summary ---
Author Organization [employer] Address [address] [place] [address] 7 [place] [address] Care Team Providers Care Mine Engineer Name Role Phone Liam Aviles MD Unavailable Unavailable Mercedes Jhaveri FISHERY BIOLOGIST Unavailable [phone] Ney Jasso Primary Care Provider Adelaide Sr Primary Care Provider [phone] Urszula Mcmahan MD Primary Care Provider [phone] Adelaide Moreno Primary Care Provider [phone] Anahi Mulligan MD Primary Care Provider [phone] Urszula Mcmahan MD Primary Care Provider [phone] Reason for Visit * Reason Onset Date Comments Med Refill 04/28/2022 Encounter Details Date Type Department Care Team (Late st Contact Info) Description 04/28/2022 Telephone [facility] MEDICINE [address] [place] [phone] Ney Jasso FNP Med Refill Social History [...] Description 02/15/2025 11:30 AM EST Office Visit [facility] CHC MED & PEDS [address] [place], [place] [phone] Urszula Mcmahan MD 505 [place] [address] documented as of this encounter Visit Diagnoses Diagnosis Fibromyalgia- Primary Unspecified myalgia and myositis documented in this encounter Care Teams Mine Engineer Relationship Specialty Start Date End Date Ney Jasso FNP [address] [place] [address] PCP - General Family Medicine 03/24/22 05/31/22 Adelaide Moreno FNP [address] [place] [address] PCP - General Family Medicine 06/01/22 10/26/23 Urszula Mcmahan MD [address] [place], [place] PCP - General Family Medicine 11/29/23 12/21/23 Adelaide Moreno FNP [address] [place] [address] PCP - General Family Medicine 11/17/23 11/28/23 Anahi Mulligan MD [address] [place], [place] PCP - General Family Medicine 12/22/23 02/03/24 Urszula Mcmahan MD [address] [place] [address] PCP - General Family Medicine 02/04/24 Liam Aviles MD Family Medicine 01/30/22 12/27/23 Mercedes Jhaveri FNP [address] [place] [address] Family Medicine 01/30/22 documented as of this encounter
--- OUTSIDE RECORDS SUMMARY | 2024-12-13 15:30 | XMS_ITS | Encounter Summary ---
Author Organization [facility] Address [address] [facility] [address] [place] [address] Phone Care Team Providers Care Movers Name Role Phone Tao Choudhury MD Unavailable [phone] Dustin Garber DO Primary Care Provider [phone] Encounter Details Date Type Department Care Team (Latest Contact Info) Description 04/29/2018 Ancillary Orders [facility] Rheumatology [address], [address] [place] [address] Silvia Bustillos MD [address] [address] [email or web address] Inflammatory arthritis Social History Tobacco Use Types Packs/Day Years Used Date Smoking Tobacco: Never Assessed Sex and Gender Information Value Date Recorded Sex Assigned at Not on file Legal Sex Male 9:55 PM EDT Gender Identity Not on file Sexual Orientation Not on file documented as of this encounter Plan of Treatment Not on file documented as of this encounter Results * XR HAND 2 VIEWS (LEFT) (04/29/2018 1:00 PM EST) Anatomical Region Laterality Modality Hand Left Radiographic Amy ging 04/29/2018 2:37 PM EST Impressions 04/29/2018 3:46 PM EST Mild degenerative changes of the left thumb CMC joint. No evidence of an inflammatory arthritis. ATTESTATION: I, Dr. Luis Patel as teaching physician, have reviewed the images for this case and if necessary edited the report originally created by Dr. Cora Sanchez. Narrative 04/29/2018 3:46 PM EST TECHNIQUE: XR HAND 2 VIEWS (RIGHT), XR HAND 2 VIEWS (LEFT) COMPARISON: None FINDINGS: No acute fractures or dislocations. There are are degenerative changes of the first carpometacarpal joint on the left. There are scattered cystic change in the left carpal bones. No osseous erosions or periarticular osteopenia. Procedure Note Luis Patel MD - 04/29/2018 TECHNIQUE: XR HAND 2 VIEWS (RIGHT), XR HAND 2 VIEWS (LEFT) COMPARISON: None FINDINGS: No acute fractures or dislocations. There are are degenerative changes ofthe first carpometacarpal joint on the left. There are scattered cystic changein the left carpal bones. No osseous erosions or periarticular osteopenia. IMPRESSION: Mild degenerative changes of the left thumb CMC joint. No evidence of an inflammatory arthritis. ATTESTATION: I, Dr. Luis Patel as teaching physician, have reviewedthe images for this case and if necessary edited the report originally createdby Dr. Cora Sanchez. Silvia Bustillos MD IMG XR UPPER EXTREMITY Final Result documented in this encounter Visit Diagnoses Diagnosis Inflammatory arthritis Unspecified inflammatory polyarthropathy Inflammatory arthritis Unspecified inflammatory polyarthropathy documented in this encounter Care Teams Movers Relationship Specialty Start Date End Date Dustin Garber DO [address] [address] [email or web address] PCP - General Family Medicine 04/22/18 Tao Choudhury MD [address] [place] [address] [email or web address] Historical LMR Provider 01/21/17 04/12/21 documented as of this encounter Additional Source Comments The information contained in this document represents components of the legal health record. It is not the complete legal health record.[facility]
--- OUTSIDE RECORDS SUMMARY | 2024-12-13 15:30 | XMS_ITS | Clinical Summary ---
Author Organization [facility] Address [address] [place] [address] Care Team Providers Care Bow Machine Operator Name Role Phone Unavailable Primary Care Provider Unavailabl e Social History Tobacco Use Types Packs/Day Years Used Date Smoking Tobacco: Never Assessed Sex and Gender Information Value Date Recorded Sex Assigned at Not on file Legal Sex Male 8:06 PM EST Gender Identity Not on file Sexual Orientation Not on file Plan of Treatment Health Maintenance Due Date Last Done Comments DTaP,Tdap,and Td Vaccines (1 - Tdap) 1974 Pneumococcal Vaccine: 50+ Ye ars (1 of 1 - PCV) 2005 Zoster Vaccines (1 of 2) 2005 Depression Screening 04/05/2024 COVID-19 Vaccine (1 - 2023-2 5 season) 2024 Influenza Vaccine (#1) 2024 RSV Immunization Adult Patie nts (1 - 1-dose 75+ series) 2030 HIB [...] patient's age to complete this topic Meningococcal B Vaccine Aged Out No l onger eligible based on patient's age to complete this topic RSV Immunization Patients Un brianna 20 months Aged Out No longer eligible b ased on patient's age to complete this topic Varicella Vaccines Aged Out No longer eligible based on patient's age to complete this topic
--- OUTSIDE RECORDS SUMMARY | 2024-12-13 15:30 | XMS_ITS | Encounter Summary ---
Author Organization [facility] Address [address] [place] [address] [place] [address] Phone Care Team Providers Care Thread Milling Machine Set Up Operator Name Role Phone Tao Choudhury MD Unavailable [phone] Rachael Norton NP Primary Care Provider + July Norton MD Primary Care Provider [phone] Dustin Garber DO Primary Care Provider [phone] Reason for Referral * Consultation (Within 1 month) - Closed Specialty Diagnoses / Procedures Referred By Allie estrada Referred To Contact Rheumatology System, Provider Not In, [facility] [address] [address] Phone: tel: Referral ID Status Reason Start Date Expiration Date Visits Re quested Visits Authorized [id number] Closed 09/10/2017 09/10/2018 1 1 Encounter Details Date Type Department Care Team (Late st Contact Info) Description 09/10/2017 Transcribe Orders [facility] Rheumatology [address], [address], [address] [place] [address] System, Provider Not In, [place] [address] Social History Tobacco Use Types Packs/Day Years Used Date Smoking Tobacco: Never Assessed Sex and Gender Information Value Date Recorded Sex Assigned at Not on file Legal Sex Male 9:55 PM EDT Gender Identity Not on file Sexual Orientation Not on file documented as of this encounter Plan of Treatment Scheduled Referrals Name Type Priority Associated Diagnoses Order Schedule Ambulatory referral to [facility] Rheumatology Outpatient Referral Routine Ordered: 09/10/2017 documented as of this encounter Visit Diagnoses Not on filedocumented in this encounter Care Teams Thread Milling Machine Set Up Operator Relationship Specialty Start Date End Date Rachael Norton NP [address] [place] [address] PCP - General Unknown Provider Specialty 03/31/17 09/22/17 July Norotn MD [address] [place] [address] [email or web address] PCP - General Family Medicine 09/23/17 04/21/18 Dustin Garber, [address] [address] [email or web address] PCP - General Family Medicine 04/22/18 [place] [address] [place] [address] [email or web address] Historical LMR Provider 01/21/17 04/12/21 documented as of this encounter Additional Source Comments The information contained in this document represents components of the legal health record. It is not the complete legal health record.[facility]
--- OUTSIDE RECORDS SUMMARY | 2024-12-13 15:30 | XMS_ITS | Encounter Summary ---
Author Organization [employer] Address [address] [place] [address] 7 [place] [address] Care Team Providers Care Horizontal Resaw Operator Name Role Phone Liam Aviles MD Unavailable Unavailable Mercedes Jhaveri EXTRACTION MACHINE OPERATOR Unavailable [phone] Adelaide Moreno Primary Care Provider [phone] Urszula Mcmahan MD Primary Care Provider Adelaide Moreno Primary Care Provider [phone] Anahi Mulligan MD Primary Care Provider Urszula Mcmahan MD Primary Care Provider Reason for Visit * Reason Comments Med Change Request Encounter Details Date Type Department Care Team ([facility] st Contact Info) Description 09/28/2023 Refill [facility] MEDICINE [address] [place], [place] [phone] Adelaide Moreno FNP [address] [place], [place] [phone] Social History Tobacco Use Types Packs/Day Years [...] Description 02/15/2025 11:30 AM EST Office Visit [facility] CHC MED & PEDS [address] [place] [address] Urszula Mcmahan MD 505 [place] [address] documented as of this encounter Visit Diagnoses Not on filedocumented in this encounter Additional Health Concerns Assessment Noted Time PHQ-9 Depression Total Score: 1 06/04/19 1:59 PM EST documented as of this encounter Care Teams Horizontal Resaw Operator Relationship Specialty Start Date End Date Adelaide Moreno FNP [address] [place] [address] PCP - General Family Medicine 06/01/22 10/26/23 Urszula Mcmahan MD [address] [place] [address] PCP - General Family Medicine 11/29/23 12/21/23 Adelaide Moreno FNP [address] [place] [address] PCP - General Family Medicine 11/17/23 11/28/23 Anahi Mulligan MD [address] [place] [address] PCP - General Family Medicine 12/22/23 02/03/24 Urszula Mcmahan MD [address] [place] [address] PCP - General Family Medicine 02/04/24 Liam Aviles MD Family Medicine 01/30/22 12/27/23 Mercedes Jhaveri FNP [address] [place] [address] Family Medicine 01/30/22 documented as of this encounter
--- OUTSIDE RECORDS SUMMARY | 2024-12-13 15:30 | XMS_ITS | Encounter Summary ---
Author Organization [employer] Address [address] [facility] 7t [place] [address] Care Team Providers Care Data Conversion Operator Name Role Phone JhaveriMercedes roach POPPY Unavailable [phone] Urszula Mcmahan MD Primary Care Provider [phone] Encounter Details Date Type Department Care Team ([facility] st Contact Info) Description 08/02/2024 Orders Only [facility] CHC MED & PEDS [address] [place] [address] Ra Grajeda MD [address] [place] [address] Class 2 obesity without serious comorbidity with body mass index (BMI) of 35.0 to 35.9 in adult, unspecified obesity type (Primary Dx) Social History Tobacco Use Types [...] your housing situation today? I have inga sing 01/19/[address] you li [...] Description 02/15/2025 11:30 AM EST Office Visit [facility] MED & PEDS [address] [place] [address] Urszula Mcmahan MD 505 [place] [address] documented as of this encounter Visit Diagnoses Diagnosis Class 2 obesity without serious comorbidity with body mass index (BMI) of 35.0 to 35.9 in adult, unspecified obesity type- Primary documented in this encounter Additional Health Concerns Assessment Noted Time PHQ-9 Depression Total Score: 1 06/04/19 24 1:59 PM EST documented as of this encounter Care Teams Data Conversion Operator Relationship Specialty Start Date End Date Urszula Mcmahan MD [address] [place] [address] PCP - General Family Medicine 02/04/24 Mercedes Jhaveri FNP [address] [place] [address] Family Medicine 01/30/22 documented as of this encounter
--- OUTSIDE RECORDS SUMMARY | 2024-12-13 15:30 | XMS_ITS | Encounter Summary ---
Author Organization [employer] Address [address] [facility] 7t [place] [address] Care Team Providers Care Medical Physiologist Name Role Phone JhaveriMercedes roach POPPY Unavailable [phone] Urszula Mcmahan MD Primary Care Provider [phone] Reason for Visit * Reason Comments Med Refill Encounter Details Date Type Department Care Team ([facility] st Contact Info) Description 09/16/2024 Refill [facility] CHC MED & PEDS 505 [place] [address] Ra Grajeda MD 505 [place] [address] Chronic fatigue syndrome with fibromyalgia Social History [...] Description 02/15/2025 11:30 AM EST Office Visit [facility] MED & PEDS [address] [place] [address] Urszula Mcmahan MD 505 [place] [address] documented as of this encounter Visit Diagnoses Diagnosis Chronic fatigue syndrome with fibromyalgia documented in this encounter Additional Health Concerns Assessment Noted Time PHQ-9 Depression Total Score: 1 06/04/19 24 1:59 PM EST documented as of this encounter Care Teams Medical Physiologist Relationship Specialty Start Date End Date Urszula Mcmahan MD [address] [place] [address] PCP - General Family Medicine 02/04/24 Mercedes Jhaveri FNP [address] [place] [address] Family Medicine 01/30/22 documented as of this encounter
--- OUTSIDE RECORDS SUMMARY | 2024-12-13 15:30 | XMS_ITS | Encounter Summary ---
Author Organization [employer] Address [address] [facility] 7 [place] [address] Care Team Providers Care Photographer Aerial Name Role Phone Liam Aviles MD Unavailable Unavailable Mercedes Jhaveri BAY STOCKER Unavailable [phone] Urszula Mcmahan MD Primary Care Provider Adelaide MorenoP Primary Care Provider [phone] Anahi Mulligan MD Primary Care Provider Urszula Mcmahan MD Primary Care Provider [phone] Reason for Visit * Reason Onset Date Comments Med Refill 11/12/2023 Encounter Details Date Type Department Care Team (Late st Contact Info) Description 11/12/2023 Refill [facility] MEDICINE [address] [place], [place] [phone] Adelaide Moreno FNP [address] [place], [place] [phone] Social History Tobacco Use Types Packs/Day Years [...] encounter Miscellaneous Notes * Telephone Encounter - Urszula Mcmahan MD - 11/17/2023 9:46 AM EDT Patient has never been seen in [place], nor there is a transfer request, this is a [place] Patient, last seen by Tiffanie. There is not encounter that patient wants to be transferred and not appts for transfers, please forward to Tiffanie documented in this encounter Plan of Treatment Upcoming Encounters Date Type Department Care Team (Late st Contact Info) Description 02/15/2025 11:30 AM EST Office Visit [facility] CHC MED & PEDS [address] [place] [address] Urszula Mcmahan MD 505 [place] [address] documented as of this encounter Visit Diagnoses Not on filedocumented in this encounter Additional Health Concerns Assessment Noted Time PHQ-9 Depression Total Score: 1 06/04/19 1:59 PM EST documented as of this encounter Care Teams Photographer Aerial Relationship Specialty Start Date End Date Urszula Mcmahan MD [address] [place] [address] PCP - General Family Medicine 11/29/23 12/21/23 Adelaide Moreno FNP [address] [place] [address] PCP - General Family Medicine 11/17/23 11/28/23 Anahi Mulligan MD [address] [place] [address] PCP - General Family Medicine 12/22/23 02/03/24 Urszula Mcmahan MD [address] [place] [address] PCP - General Family Medicine 02/04/24 Liam Aviles MD Family Medicine 01/30/22 12/27/23 Mercedes Jhaveri FNP [address] [place] [address] Family Medicine 01/30/22 documented as of this encounter
--- OUTSIDE RECORDS SUMMARY | 2024-12-13 15:30 | XMS_ITS | Encounter Summary ---
Author Organization [employer] Address [address] [place] [address] 7 [place] [address] Care Team Providers Care Plasma Center Technician Name Role Phone Liam Aviles MD Unavailable Unavailable Mercedes Jhaveri VULCANIZING PRESS OPERATOR Unavailable [phone] Adelaide Moreno Primary Care Provider [phone] Urszula Mcmahan MD Primary Care Provider Adelaide Moreno Primary Care Provider [phone] Anahi Mulligan MD Primary Care Provider Urszula Mcmahan MD Primary Care Provider [phone] Reason for Visit * Reason Comments Med Change Request Encounter Details Date Type Department Care Team ([facility] st Contact Info) Description 10/19/2023 Refill [facility] MEDICINE [address] [place], [place] [phone] Adelaide Moreno FNP [address] [place], [place] [phone] Social History Tobacco Use Types Packs/Day Years [...] Office Visit [facility] CHC MED & PEDS [address] [place] [address] Urszula Mcmahan MD 505 [place] [address] documented as of this encounter Visit Diagnoses Not on filedocumented in this encounter Additional Health Concerns Assessment Noted Time PHQ-9 Depression Total Score: 1 06/04/19 1:59 PM EST documented as of this encounter Care Teams Plasma Center Technician Relationship Specialty Start Date End Date Adelaide Moreno FNP [address] [place] [address] PCP - General Family Medicine 06/01/22 10/26/23 Urszula Mcmahan MD [address] [place] [address] PCP - General Family Medicine 11/29/23 12/21/23 Adelaide Moreno FNP [address] [place] [address] PCP - General Family Medicine 11/17/23 11/28/23 Anahi Mulligan MD [address] [place] [address] PCP - General Family Medicine 12/22/23 02/03/24 Urszula Mcmahan MD [address] [place] [address] PCP - General Family Medicine 02/04/24 Liam Aviles MD Family Medicine 01/30/22 12/27/23 Mercedes Jhaveri FNP [address] [place] [address] Family Medicine 01/30/22 documented as of this encounter
--- OUTSIDE RECORDS SUMMARY | 2024-12-13 15:30 | XMS_ITS | Encounter Summary ---
Author Organization [facility] Address [address] [place] [address] Phone Care Team Providers Care Customer Sales Consultant Name Role Phone Tao Choudhury MD Unavailable [phone] July Norton MD Primary Care Provider Dustin Garber DO Primary Care Provider [phone] Reason for Referral * Consultation (Within 1 month) - Closed Specialty Diagnoses / Procedures Referred By Allie estrada Referred To Contact Rheumatology System, Provider Not In, PhD [address] [address] Silvia Bustillos MD Phone: tel: fax: mailto:[email or web address] Referral ID Status Reason Start Date Expiration Date Visits Re quested Visits Authorized [id number] Closed 04/06/2018 04/24/2019 1 20 Encounter Details Date Type Department Care Team ([facility] st Contact Info) Description 03/04/2018 Transcribe Orders [facility] [place] [place] [address], [address] [place] [address] July Norton MD [address] [place] [phone] [email or web address] Social History Tobacco Use Types Packs/Day Years Used Date Smoking Tobacco: Never Assessed Sex and Gender Information Value Date Recorded Sex Assigned at Not on file Legal Sex Male 9:55 PM EDT Gender Identity Not on file Sexual Orientation Not on file documented as of this encounter Plan of Treatment Scheduled Referrals Name Type Priority Associated Diagnoses Order Schedule Ambulatory referral to [facility] [place] Outpatient Referral Routine Ordered: 03/04/2018 documented as of this encounter Visit Diagnoses Not on filedocumented in this encounter Care Teams Customer Sales Consultant Relationship Specialty Start Date End Date July Norton MD [address] [place] [phone] [email or web address] PCP - General Family Medicine 09/23/17 Dustin Knapp DO [address] [address] [email or web address] PCP - General Family Medicine 04/22/18 Tao Choudhury MD [address] [place] [phone] [email or web address] Historical LMR Provider 01/21/17 04/12/21 documented as of this encounter Additional Source Comments The information contained in this document represents components of the legal health record. It is not the complete legal health record.[facility]
--- OUTSIDE RECORDS SUMMARY | 2024-12-13 15:30 | XMS_ITS | Clinical Summary ---
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 90 tablet 1 024 Active baclofen (Lioresal) 10 MG tablet Take 1 tablet (10 mg) by mouth 3 times daily. 90 tablet 1 024 Active cetirizine (ZyrTEC) 10 MG tabletIndications :Allergy to Mexican house dust mite Take 1 tablet (10 mg) by mouth Once per day. 90 tablet 3 024 Active hydrOXYzine pamoate (Vistaril) 50 MG capsuleIndication s:Persistent insomnia TAKE 1 CAPSULE BY MOUTH AT BEDTIME IF NEEDED FOR ANXIETY 90 capsule 1 024 Active ipratropium (Atrovent) 0.03 % nasal sprayIndications: Allergy to Mexican house dust mite Use 1-2 sprays by intranasal route up to 4 times per day 30 mL 3 024 Active Ketotifen Fumarate 0.035 % solutionIndicatio ns:Allergic Conjunctivitis Administer 0.017 fluid ounces into affected eye(s) if needed each day (itching). Use one drop in each eye prn 10 mL 1 Active EPINEPHrine (Epipen) 0.3 MG/0.3ML injection syringe Inject 0.3 mL (0.3 mg) as directed 1 (one) time for 1 dose. Inject into upper leg. Call 911 after use. 1 each Active omeprazole (PriLOSEC) [address] capsuleIndication s:Heartburn Take 1 capsule (20 mg) by mouth before breakfast. 180 capsule 1 Active gabapentin (Neurontin) 300 MG capsuleIndication s:Fibromyalgia TAKE ONE CAPSULE BY MOUTH EVERY MORNING, TAKE TWO CAPSULES BY MOUTH EVERY EVENING, TAKE FOUR CAPSULES BY MOUTH AT BEDTIME 210 capsule 3 Active meloxicam (Mobic) 7.5 MG tablet TAKE 1 TABLET BY MOUTH TWICE DAILY 180 tablet Active losartan (Cozaar) 100 MG tablet TAKE ONE TABLET BY MOUTH ONCE DAILY 90 tablet 1 Active modafinil (Provigil) 200 MG tabletIndications :Chronic fatigue syndrome with fibromyalgia TAKE ONE TABLET DAILY 28 tablet 1 025 Active hydroCHLOROthiazi de (HYDRODiuril) 25 MG tablet TAKE ONE TABLET DAILY 90 tablet 1 025 Active amLODIPine (Norvasc) 10 MG tablet Take 10 mg by mouth Once per day. 025 Active Tirzepatide-Weigh t Management 15 MG/0.5ML solution auto-injector Inject 0.5 mL (15 mg) under the skin 1 (one) time per week. 2 mL 3 025 Active amLODIPine (Norvasc) 5 MG tablet Take 1 tablet (5 mg) by mouth Once per day. 90 tablet 1 024 2024 Discontinued hydroCHLOROthiazi de (HYDRODiuril) 25 MG tablet Take 1 tablet (25 mg) by mouth Once per day. 90 tablet 1 025 2024 Discontinued Tirzepatide-Weigh t Management 12.5 MG/0.5ML solution auto-injector Inject 0.5 mL (12.5 mg) under the skin 1 (one) time per week. 2 mL 3 025 2024 Discontinued(I neffective) Active Problems Problem Noted Date Diagnosed Date Polyarthralgia 12/13/2024 Trigger finger of right hand 11/03/2024 Obesity, morbid 02/04/2024 Assessment & Plan (04/20/2024 2:18 PM EST): Continue on Zepbound, follow up next visit. Assessment & Plan (03/27/2024 2:01 PM EST): Patient currently on pharmacotherapy to assist with management of his weight. Starting weight: 245 lbs 12 oz Current weight: 245lbs (not response to wegovy) Review continue lifestyle modifications. Patient was titrated up to treatment dose. Tolerated titration well. Patient was transitioned to Zepbound given change in preferred agent by patient s insurance and medication efficacy. If patient not responsive to higher dose GLP-1 will need to discontinue as agent not helpful for patient. Reviewed mechanism of action with patient. Discussed side effects with patient: nausea, vomiting, diarrhea & risk of pancreatitis. No contraindications identified: , hx of pancreatitis, hx of medullary thyroid cancer or MEN 2. Discussed calorie deficit, recommended reduction of 20-30% of maintenance calories; fire sprinkler inspector referral offered. Recommended to decrease soda and sugary beverage consumption. Recommended at least 20 g per meal of protein to assist with satiety. Recommended at least 150 min/week of moderate intensity exercise. Assessment & Plan (02/07/2024 2:57 AM EST): Patient currently on pharmacotherapy to assist with management of his weight. Starting weight: 245 lbs Current weight: 244 lbs Review continue lifestyle modifications. Patient was titrated up to treatment dose. Tolerated titration well. Patient on Wegovy, given know efficacy and proven benefits to reduce the risk of cardiovascular events in patients who are overweight or obese and have cardiovascular disease, following of the SELECT trial results. Reviewed mechanism of action with patient. Discussed side effects with patient: nausea, vomiting, diarrhea & risk of pancreatitis. No contraindications identified: , hx of pancreatitis, hx of medullary thyroid cancer or MEN 2. Discussed calorie deficit, recommended reduction of 20-30% of maintenance calories; fire sprinkler inspector referral offered. Recommended to decrease soda and sugary beverage consumption. Recommended at least 20 g per meal of protein to assist with satiety. Recommended at least 150 min/week of moderate intensity exercise. Will increase wegovy to max dose, if no improvement will need to switch to zepbound. 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 Sleep apnea with use of cont inuous positive airway pressure (CPAP) 12/17/2022 Overview (02/04/2024): CPAP Tinnitus of both ears 12/17/2022 Assessment & Plan (09/15/2023 5:16 PM EDT): -no alarming symptoms reported -continue to monitor and discuss with PCP at next scheduled visit History of throat cancer 12/17/2022 History of rotator cuff surgery 12/17/2022 History of left knee surgery 12/17/2022 Brain fog 12/17/2022 Allergy to Mexican house dust mite 12/17/2022 Class 2 obesity 12/17/2022 Posterior tibial tendon dysf unction (PTTD) of right lower extremity 05/06/2022 Fibromyalgia 03/27/2022 Assessment & Plan (03/17/2024 2:35 PM EST): Discussed treatment options, offered PT, pt will consider but declined at this time. Malignant neoplasm of skin 11/04/2020 Migraine without aura, not refractory 11/04/2020 Vitamin D deficiency 11/04/2020 Hyperlipidemia 11/04/2020 Gastroesophageal reflux disease 11/04/2020 Persistent insomnia 04/25/2020 Assessment & Plan (12/30/2023 11:59 AM EDT): -assured patient six hours of sleep is acceptable as long he feels rested upon awakening -he is advised to continue sleep hygiene measures and maintain physical activity during the day as he is able to tolerate -use hydroxyzine as needed if he is obtaining less than six hours of sleep for consecutive nights -advised he follow-up with sleep medicine provider for the potential need to adjust his CPAP settings -continue acupuncture and non-pharm interventions previously discussed Assessment & Plan (09/15/2023 5:13 PM EDT): -patient at increased risk for oversedation with use of amitriptyline 10 mg, hydroxyzine 50 mg and gabapentin 1200 mg each night -with shared decision making, plan to decrease hydroxyzine dose to 25 mg for now with the intention of discontinuing use all together -advised of 1 pm acupuncture session of Tuesdays. Patient verbalize willingness to attend some sessions -fall precautions reviewed -follow-up 2 weeks via televisit Assessment & Plan (09/02/2023 11:53 AM EDT): -sleep hygiene measures reviewed: keep a consistent bed and awakening time; avoid coffee, caffinated drink or foods right before bed; avoid looking at phone or TV 30 min before bed; engage in daily physical activity 4-6 hrs before bed; keep the place where you sleep quiet and dark. Get out of bed, after about 30 mins of not being able to sleep and engage in a boring activity -informed of acupuncture services here at [facility] and he willing to give it a try -advised to engage in daily physical activity as tolerated to tire the body -informed patient of various medication options for sleep. 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 Advised to eat bananas, oranges, spinach, grapefruit, carrots, etc and begin medication as stated above. Chronic myofascial pain 03/24/2017 Hypertension 11/25/2016 Assessment & Plan (04/20/2024 2:17 PM EST): DC Chlorthalidone and begin Hydrochlorothiazide. Ordering lab work to be completed before next visit in 2 weeks with nurse for BP recheck. 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 1 04/05/2023 Hx of total knee arthroplasty, left 08/25/2018 02/04/2024 Encounters Date Type Department Care Team Description 12/13/2024 11:15 AM EDT Office Visit [facility] [address] [place] [address] Urszula Mcmahan MD Obesity, morbid (CMS/HCC) (Primary Dx); Polyarthralgia; Encounter for screening for other viral diseases 12/13/2024 Travel 12/12/2024 Telephone [facility] [address] [place] [address] Urszula Mcmahan MD Chart Prep 12/08/2024 Travel 12/01/2024 Refill [facility] [address] [place] [address] Urszula Mcmahan MD 11/01/2024 Refill [facility] [address] [place] [address] Urszula Mcmahan MD Chronic fatigue syndrome with fibromyalgia 10/27/2024 Refill [facility] [address] [place] [address] Urszula Mcmahan MD 09/20/2024 Refill [facility] [address] [place] [address] Julián Oviedo MD 09/16/2024 Refill [facility] [address] [place] [address] Ra Grajeda MD Chronic fatigue syndrome with fibromyalgia 09/14/2024 Results Follow-Up [facility] [address] [place] [address] Urszula Mcmahan MD CBC auto differential, Comprehensive Metabolic Panel, Vitamin D, 25-Hydroxy, Total, Immunoassay, Additional followed-up results: 4 from Last 3 Months Immunizations Immunization Administration Dates Next Due Influenza High-dose Quadriva lent Preservative Free 12/15/2021 Influenza Quadrivalent Adjuvanted 12/08/2022 Influenza injectable quadriv alent IIV4 with preservative 12/26/2014 Influenza injectable quadriv alent preservative free 12/15/2017,11/29/2016,02/05/2016 Influenza, Unspecified 12/01/2018,2016,03/16/2016,04/28 Moderna Covid-19 Vaccine 12+ 07/01/2023,09/16/19 23 Pneumococcal Conjugate PCV 13 01/19/2018, 018 Pneumococcal Polysaccharide PPSV23 08/14/2021 RSV Adjuvant 12/08/2022 Tdap 05/20/2016 Zoster, live 11/08/2018,09/08/2018,03/03/2017 Family History Medical History Relation Name Comments Dementia Father Skin cancer Father COPD Mother Gallbladder disease Mother Stroke Paternal Grandfather Relation Name Status Comments Father Mother Paternal Grandfather Social History Tobacco Use Types Packs/Day Years Used Date Smoking Tobacco: Former Cigarettes Q uit: 06/24/2022 Smokeless Tobacco: Never Tobacco Cessation:Counseling Given: Not Answered Comments:Rolls his own cigarettes which are smaller than normal cigarettes, no [...] Don't know 02/02/2022 10 :38 AM EDT Last Filed Vital Signs Vital Sign Reading [...] Mass Index 33.71 12/13/2024 11:21 AM EDT Plan of Treatment Upcoming Encounters Date Type Department Care Team (Late st Contact Info) Description 02/15/2025 11:30 AM EST Office Visit [facility] [address] [place] [address] Urszula Mcmahan MD [address] [place] [address] Health Maintenance Due Date Last Done Comments CT Colonography 1955 Colonoscopy 1955 FIT 1955 Sigmoidoscopy 1955 Derm Melanoma Skin Check 1955 SDOH Screening 06/03/2024 06/04/2023 Influenza Vaccine (#1) 2024 , 12/15/2021, 12/01/2018, Additional history exists COVID-19 Vaccine ( season) 2025 07/26/2024, 07/01/2023, 09/15/2022, Additional history exists Zoster Vaccines (2 of 3) 02/03/2025 019, 09/08/2018, 03/03/2017 Postponed from 01/03/2019 (Patient Refused) FOBT 02/10/2025 02/11/2024, 12/14/2019 Alcohol/Substance Use Screening 12/13/2025 12/13/2024 Depression Screening 12/13/2025 12/13/2024, 12/14/19 25 Tobacco Screening 12/13/2025 12/13/2024 DTaP/Tdap/Td Vaccines (2 - Td or Tdap) 05/20/2026 05/20/2016 Colorectal Cancer Screening 02/10/2027 FIT DNA/Cologuard 02/10/2027 02/11/2024 Lipid Panel 02/03/2029 02/04/2024, 06/04, 11/04/2020, Additional history exists Pneumococcal Vaccine: 50+ Years Completed 08/14/2021, 01/19/2018, 08/13/2017 RSV Patients and Patients Aged 60 years or older Completed 12/08/2022 Hepatitis C Screening Completed 09/12/2024 Anal Pap Discontinued HIB Vaccines Aged Out No longer eligi [...] patient's age to complete this topic Meningococcal Vaccine Aged Out No jeni malcolm eligible based on patient's age to complete this topic RSV under 20 months Aged Out No longe r eligible based on patient's age to complete this topic Rotavirus Vaccines Aged Out No longer eligible based on patient's age to complete this topic Procedures Procedure Name Priority Date/Time Associated Diagnosis Comments RHEUMATOID FACTOR Routine 12/13/2024 12: 36 PM EDT Polyarthralgia SED RATE BY MODIFIED WESTERGREN Routine 12/13/2024 12:36 PM EDT Polyarthralgia C-REACTIVE PROTEIN Routine 12/13/2024 12 :36 PM EDT Polyarthralgia HEPATITIS C AB W/REFL TO HCV RNA, QN, PCR Routine 09/12/2024 12:00 AM EDT Screening due IRON AND TOTAL IRON BINDING CAPACITY Routine 09/12/2024 12:00 AM EDT Chronic fatigue syndrome with fibromyalgia Abnormal finding of blood chemistry, unspecified TSH W/REFLEX TO FT4 Routine 09/12/2024 1 2:00 AM EDT Chronic fatigue syndrome with fibromyalgia VITAMIN B12/FOLATE, SERUM PANEL Routine 09/12/2024 12:00 AM EDT Chronic fatigue syndrome with fibromyalgia VITAMIN D,25-OH,TOTAL,IA Routine 09/12/2024 12:00 AM EDT Chronic fatigue syndrome with fibromyalgia Body mass index (BMI) 35.0-35.9, adult COMPREHENSIVE METABOLIC PANEL Routine 09/12/2024 12:00 AM EDT Chronic fatigue syndrome with fibromyalgia CBC WITH AUTO DIFFERENTIAL Routine 09/12/2024 12:00 AM EDT Chronic fatigue syndrome with fibromyalgia LAB COLOGUARD COLON CANCER SCREEN Routine 02/11/2024 12:40 PM EST Screening for colon cancer LIPID PANEL, STANDARD Routine 02/04/2024 2:43 PM EDT Obesity, morbid (CMS/HCC) from Last 3 Months or Most Recently Relevant to Health Maintenance Results * Sed Rate by Modified Westergren (12/13/2024 12:36 PM EDT) [facility] Erythrocyte Sedimentation Rate 7 0 - 15 MM/HR [facility] Comment:Patients with polycy themia and many hemoglobin abnormalitiesmay have depressed sed rates whereas patients with anemiamay have elevated sed rates. Blood Venous blood specimen / Unknown 12/13/2024 12:36 PM EDT 12/13/2024 2:23 PM EDT Urszula Mcmahan MD LAB BLOOD ORDERABLES Final Re sult Performing Organization Address [facility]/ZIP Co de Phone Number [facility] [address] [place] [phone] * Rheumatoid Factor (12/13/2024 12:36 PM EDT) [facility] Rheumatoid Factor <13.0 <15.0 IU/mL [facility] Blood Venous blood specimen / Unknown 12/13/2024 12:36 PM EDT 12/13/2024 2:17 PM EDT Urszula Mcmahan MD LAB BLOOD ORDERABLES Final Re sult Performing Organization Address City/[facility]/ZIP Co de Phone Number [facility] [address] [place] [phone] * C-reactive Protein (12/13/2024 12:36 PM EDT) C Reactive Protein 0.44 < or = 0.50 mg/dL [facility] Blood Venous blood specimen / Unknown 12/13/2024 12:36 PM EDT 12/13/2024 2:18 PM EDT us Urszula Mcmahan MD LAB BLOOD ORDERABLES Final Re sult Performing Organization Address City/[facility]/ZIP Co de Phone Number [facility] [address] [place] [address] [phone] * Vitamin D, 25-Hydroxy, Total, Immunoassay (09/12/2024 12:00 AM EDT) Pathologist [facility] Vitamin D 25-OH Total 47.1 >30 ng/mL [facility] Comment: Health Based Reference Values*< 20 ng/mL Precydsag33-38 ng/mL Insufficient> 30 ng/mL Sufficient*Timbo PATEL. N Engl J Med. 2007;357:266-280There is no well-established upper level of normal vitamin Dlevels. Some laboratories use 50 ng/mL as an upper limit ofnormal. However, toxicity is patient-dependent and may occurat any level. Careful correlation with the patient'spresentation is necessary and, if there is concern forvitamin D toxicity, treatment should be consideredirrespective of the serum level.Care must be taken in interpreting Vitamin D results fromdifferent laboratories and methodologies. Published datademonstrated that results from patients undergoinghemodialysis may show a negative bias when tested withvarious automated 25-OH vitamin D assays when compared toLC-MS/MS.When testing samples from patients whose predominant form ofVitamin D is Vitamin D2, such as patients receiving VitaminD2 supplementation, results that are subtherapeutic shouldbe confirmed with another method such as LC-MS/MS. Blood Venous blood specimen / Unknown 09/12/2024 09/12/2024 us Urszula Mcmahan MD LAB BLOOD ORDERABLES Final Re sult Performing Organization Address City/[facility]/ZIP Co de Phone Number [facility] [address] [place] [address] [phone] * Vitamin B12 (Cobalamin) and Folate Panel, Serum (09/12/2024 12:00 AM EDT) [facility] Vitamin B12 281 200 - 900 pg/mL [facility] Comment:NORMAL 200-900 PG/ML INDETERMINATE 160-199 PG/ML DEFICIENT < 160 PG/ML Folate 12.9 > or = 4.0 ng/mL [facility] Comment:Reference Values:> o r = 4.0 ng/mL< 4.0 ng/mL suggests folate deficiency Methotrexate, aminopterin and folinic acid(leucovorin) are chemotherapeutic agents whose molecularstructures are similar to folate; therefore, the Architectfolate assay cannot be used for patients using these drugs. Blood Venous blood specimen / Unknown 09/12/2024 09/12/2024 Urszula Mcmahan MD LAB BLOOD ORDERABLES Final Re sult Performing Organization Address City/[facility]/ZIP Co de Phone Number [facility] [address] [place] [phone] * TSH W/Reflex to FT4 (09/12/2024 12:00 AM EDT) [facility] TSH reflex Free T4 1.98 0.32 - 4.0 uIU/mL [facility] Blood Venous blood specimen / Unknown 09/12/2024 09/12/2024 Urszula Mcmahan MD LAB BLOOD ORDERABLES Final Re sult [facility] [address] [place] [phone] [phone] * (ABNORMAL) CBC auto differential (09/12/2024 12:00 AM EDT) [facility] White Blood Count 4.7(L) 4.8 - 10.8 X10*3/uL [facility] Red Blood Count 4.36(L) 4.60 - 5.80 X10*6/uL [facility] Hemoglobin 13.7(L) 14.0 - 18.0 g/dl [facility] Hematocrit 39.7(L) 42.0 - 52.0 % [facility] Mean Corpuscular Volume 91.1 80.0 - 98.0 fL [facility] Mean Corpuscular Hemoglobin 31.4 27.0 - 33.0 pg [facility] Mean Corpuscular HGB Conc 34.5 31.0 - 36.0 g/dl [facility] Red Cell Distribution Width 12.1 11.0 - 16.0 % [facility] Platelet Count 250 160 - 400 X10*3/uL [facility] Mean Platelet Volume 9.9 9.4 - 12.4 fL [facility] Neutrophils Percent Auto 56.1 45 - 73 % [facility] Imm Gran Pct Auto 0.4 0.0 - 0.4 % [facility] Lymphocytes Percent Auto 27.4 20 - 40 % [facility] Monocytes Percent Auto 11.8(H) 2 - 11 % [facility] Eosinophils Percent Auto 3.9 0 - 4 % [facility] Basophils Percent Auto 0.4 0 - 2 % [facility] NRBC Pct Auto 0.0 0.0 - 0.2 /100WBC [facility] Neutrophils Absolute Auto 2.6 2.0 - 8.3 x10*3/uL [facility] Imm Gran Abs Auto 0.02 0.00 - 0.03 X10*3/uL [facility] Lymphocytes Absolute Auto 1.3 1.2 - 4.9 X10*3/uL [facility] Monocytes Absolute Auto 0.6 0.1 - 1.2 X10*3/uL [facility] Eosinophils Absolute Auto 0.2 0.0 - 0.4 X10*3/uL [facility] Basophils Absolute Auto 0.0 0.0 - 0.2 X10*3/uL [facility] NRBC Abs Auto 0.000 0.0 - 0.012 X10*3/uL [facility] Blood Venous blood specimen / Unknown 09/12/2024 09/12/2024 Urszula Mcmahan MD LAB BLOOD ORDERABLES Final Re sult Performing Organization Address [facility] Co de Phone Number [facility] [address] [place] [phone] * Hepatitis C Antibody with Reflex to HCV, RNA, Quantitative, Real-Time PCR (09/12/2024 12:00 AM EDT) Pathologist [facility] Hepatitis C Antibody Nonreactive Nonreactive [facility] Comment:Antibodies to HCV no t detected; does not exclude early acuteHCV infection. Blood Venous blood specimen / Unknown 09/12/2024 09/12/2024 Urszula Mcmahan MD LAB BLOOD ORDERABLES Final Re sult Performing Organization Address [facility] Co de Phone Number [facility] [address] [place] [phone] * Iron And Total Iron Binding Capacity (09/12/2024 12:00 AM EDT) Pathologist [facility] Iron 92 45 - 160 mcg/dL [facility] Total Iron Binding Capacity 229 228 - 428 mcg/dL [facility] Percent Iron Saturation 40 15 - 50 % [facility] Unsaturated Iron Binding 137 ug/dL [facility] Blood Venous blood specimen / Unknown 09/12/2024 09/12/2024 Urszula Mcmahan MD LAB BLOOD ORDERABLES Final Re sult Performing Organization Address [facility] Co de Phone Number [facility] [address] [place] [phone] * (ABNORMAL) Comprehensive Metabolic Panel (09/12/2024 12:00 AM EDT) Pathologist [facility] Sodium 138 135 - 145 mmol/L [facility] Potassium 4.0 3.3 - 5.1 mmol/L [facility] Chloride 101 96 - 108 mmol/L [facility] Carbon Dioxide 30(H) 22 - 29 mmol/L [facility] Anion Gap 11(L) 12 - 20 [facility] Urea Nitrogen (BUN) 8(L) 9 - 16 mg/dL [facility] Creatinine, Serum 0.85 0.5 - 1.4 mg/dL [facility] Estimated Glomerular Filt Rate >60 [facility] Comment:Chronic Kidney Disea se: Estimated GFR < 60 mL/min/[id number] Kidney Disease: Estimated GFR < 15 mL/min/1.73m2 Glucose 124(H) 60 - 115 mg/dL [facility] Calcium 9.6 8.4 - 10.2 mg/dL [facility] Bilirubin, Total 0.6 0.0 - 1.0 mg/dL [facility] Aspartate Amino Transferase 27 5 - 37 U/L [facility] Alanine Aminotransferase 28 0 - 40 U/L [facility] Total Protein 6.5 6.5 - 8.0 g/dL [facility] Albumin Level 4.5 3.5 - 5.0 g/dL [facility] Alkaline Phosphatase 63 39 - 117 U/L [facility] Blood Venous blood specimen / Unknown 09/12/2024 09/12/2024 us Urszula Mcmahan MD LAB BLOOD ORDERABLES Final Re sult [facility] [address] [place] [address] [phone] * Cologuard?? colon cancer screening (02/11/2024 12:40 PM EST) Cologuard Result Negative Negative 02/17/20 10:11 AM EST [facility] (CLIA #:[id number]) Comment: NEGATIVE TEST RESULT. A negative Cologuard result indicates a low likelihood that a colorectal cancer (CRC) or advanced adenoma (adenomatous polyps with more advanced pre-malignant features) is present. The chance that a person with a negative Cologuard test has a colorectal cancer is less than 1 in 1500 (negative predictive value >99.9%) or has an advanced adenoma is less than 5.3% (negative predictive value 94.7%). These data are based on a prospective cross-sectional study of 10,000 individuals at average risk for colorectal cancer who were screened with both Cologuard and colonoscopy. (Maryellen Herrera et al, N Engl J Med 2014;370(14):6967-1011) The normal value (reference range) for this assay is negative. COLOGUARD RE-SCREENING RECOMMENDATION: Periodic colorectal cancer screening is an important part of preventive healthcare for asymptomatic individuals at average risk for colorectal cancer. Following a negative Cologuard result, the [place] [employer] and U.S. Multi-Society Task Force screening guidelines recommend a Cologuard re-screening interval of 3 years. References: [place] [employer] Guideline for Colorectal Cancer Screening: https://www.cancer.org/cancer/mikta-rqphdd-hxvksb/bsetzgplh-wdofjslhb-csdoxyo/ac s-rec ommendations.html.; Harpreet DK, Walker MARQUEZ, Edward EmersonK, Colorectal Cancer Screening: Recommendations for Physicians and Patients from the U.S. Multi-Society Task Force on Colorectal Cancer Screening , Am J Gastroenterology 2017; 112:4168-5615. TEST DESCRIPTION: Composite algorithmic analysis of stool DNA-biomarkers with hemoglobin immunoassay. Quantitative values of individual biomarkers are not reportable and are not associated with individual biomarker result reference ranges. Cologuard is intended for colorectal cancer screening of adults of either sex, 45 years or older, who are at average-risk for colorectal cancer (CRC). Cologuard has been approved for use by the [place] FDA. The performance of Cologuard was established in a cross sectional study of average-risk adults aged 50-84. Cologuard performance in patients ages 45 to 49 years was estimated by sub-group analysis of near-age groups. Colonoscopies performed for a positive result may find as the most clinically significant lesion: colorectal cancer [4.0%], advanced adenoma (including sessile serrated polyps greater than or equal to 1cm diameter) [20%] or non- advanced adenoma [31%]; or no colorectal neoplasia [45%]. These estimates are derived from a prospective cross-sectional screening study of 10,000 individuals at average risk for colorectal cancer who were screened with both Cologuard and colonoscopy. (Maryellen Purcell al, N Engl J Med 2014;370(14):5529-6030.) Cologuard may produce a false negative or false positive result (no colorectal cancer or precancerous polyp present at colonoscopy follow up). A negative Cologuard test result does not guarantee the absence of CRC or advanced adenoma (pre-cancer). The current Cologuard screening interval is every 3 years. ([place] [employer] and U.S. Multi-Society Task Force). Cologuard performance data in a 10,000 patient pivotal study using colonoscopy as the reference method can be accessed at the following location: www.[facility]/results. Additional description of the Cologuard test process, warnings and precautions can be found at [email or web address]. Stool specimen (specimen) 02/11/2024 12:40 PM EST 02/12/2024 7:27 AM EST us Urszula Mcmahan MD LAB MOLECULAR DIAGNOSTICS ORD ERABLES Final Result [facility] (CLIA #:[id number]) [address] [place] [address], * Lipid Panel, Standard (02/04/2024 2:43 PM EDT) Triglycerides 107 <150 mg/dL [facility] Comment:Desirable Triglyceri de: less than 150 mg/dLBorderline High Triglyceride 150-199 mg/dLHigh Triglyceride: 200-499 mg/dLVery High Triglyceride: greater than or equal to 5OO mg/dL Cholesterol 130 <200 mg/dL [facility] Comment:Desirable Cholestero l: less than 200 mg/dLBorderline High Cholesterol: 200-239 mg/dLHigh Cholesterol: greater than 239 mg/dL LDL Cholesterol Calculated 62 <100 mg/dL [facility] Comment:Desirable LDL: less than 100 mg/dLNear Optimal/Above Optimal LDL: 110- 129 mg/dLBorderline High LDL: 130-159 mg/dLHigh LDL: 160-189 mg/dLVery High LDL: greater than or equal to 190 mg/dL HDL Cholesterol 47 >40 mg/dL [facility] Comment:Desirable HDL: great er than 40 mg/dL Note: This HDL assay may give artificially low results in patients with liver disease. Blood Venous blood specimen / Unknown 02/04/2024 2:43 PM EDT 02/04/2024 5:52 PM EDT us Urszula Mcmahan MD LAB BLOOD ORDERABLES Final Re sult [facility] [address] [place] [phone] from Last 3 Months or Most Recently Relevant to Health Maintenance Insurance [place] [address] [place] [id number] 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
[2024-12-14 08:58] LABS: HBsAGNum1 0.34 S/CO (0.00-0.99); Hepatitis B Surface Antigen Negative (Negative); ~HepC Num1 0.08 S/CO (0.00-0.79); ~Hepatitis C Antibody Nonreactive (Nonreactive)
[2024-12-14 09:39] LABS: Lyme Abs Screen <0.90 index
[2024-12-19 11:08] LABS: Anti Nuclear Antibody Pattern Nuclear, Speckled; Anti Nuclear Antibody Screen POSITIVE (NEGATIVE); Anti Nuclear Antibody Titer 1:40 titer
== END 2024-12-13 12:35 | disposition home or self-care (01) ==
LOC: HO.CHCLDS 12:34
PROVIDERS: Visit Provider Family Medicine
DX: Z01.84 Encounter for antibody response examination (principal); Z11.59 Encounter for screening for other viral diseases; M25.50 Pain in unspecified joint; Z72.89 Other problems related to lifestyle
CPT/HCPCS: 36415; 85652; 86038; 86039; 86140; 86200; 86431; 86617; 86618; 86747; 86803; 87340